=== PATIENT | male | born 2000 | race Caucasian/White ===

== ENCOUNTER 2025-04-25 12:00 | Inpatient (IN) ==
[2025-04-25] MEDS: SODIUM CHLORIDE 0.9% 1,000 ML IV STA (12:38)
[2025-04-25] MEDS: ONDANSETRON INJ 2 MG/ML 2 ML VIAL IV STA (12:39)
[2025-04-25] MEDS: ACETAMINOPHEN 1,000 MG/100 ML VIAL IV STA (12:40)
[2025-04-25 13:00] LABS: Hematocrit (blood only) 37.3 % (42.0-52.0); Hemoglobin 12.9 g/dl (14.0-18.0); Mean Corpuscular Hemoglobin 29.6 pg (25.0-34.0); Mean Corpuscular Volume 85.6 fL (80.0-100.0); Platelet Count 387 K/uL (130-400); RDW Standard Deviation 39.1 fL (36.4-46.3); Red Blood Count 4.36 M/uL (4.70-6.10); White Blood Count 21.11 K/ul (4.8-10.8)
[2025-04-25] MEDS: OPTIRAY 320 100ml IV ONE (13:03)
[2025-04-25 13:23] LABS: Alanine Aminotransferase 7.0 U/L (7-52); Albumin Globulin Ratio 1.2 (0.9-2); Albumin Level 3.8 gm/dl (3.4-5.0); Alkaline Phosphatase 89.0 U/L (34-104); Anion Gap 7.0 (3-11); Bilirubin,Total 0.5 mg/dl (0.2-1.0); Blood Urea Nitrogen 5.0 mg/dl (6-23); Calcium 8.7 mg/dl (8.6-10.3); Carbon Dioxide 28.0 mmol/L (21-32); Chloride 101.0 mmol/L (98-107); Creatinine Clr Calc Pharmacy 110.4 ml/min; Globulin 3.3 gm/dl (2.5-4.0); Glucose 95.0 mg/dl (70-99(Fasting)); Lipase 19.0 U/L (11-82); Potassium 3.7 mmol/L (3.5-5.1); Sodium 136.0 mmol/L (136-145); Total Protein 7.1 gm/dl (6.0-8.3)
--- NOTE | 2025-04-25 13:25 | CT Scan Report ---
ABDOMEN AND PELVIS CT WITH IV CONTRAST CT DOSE: 402.5 mGy.cm HISTORY: Acute generalized abdominal pain in a patient with history of ulcerative colitis abd pain, UC flare TECHNIQUE: Multiaxial CT images of the abdomen and pelvis were performed following the IV administrat ion of 90 cc of Optiray, A dose lowering technique was utilized adhering to the principles of ALARA. COMPARISON STUDY: CT 04/19/2025 FINDINGS: The lung bases are clear. The liver, spleen, gallbladder, pancreas, and adrenal glands are within normal limits. No hydronephrosis. There are a few small cysts of the kidneys again noted. Urin afrooq bladder wall thickening with partial distention. Unremarkable prostate. Aorta and IVC are within normal limits. No bowel obstruction. There is prominent circumferential wall thickening throughout the entire colon extending from the cecum through the rectum with adjacent inflammatory stranding subcentimeter eliseo lonic lymph nodes. Findings have mildly worsened from prior. Fluid-filled appendix measuring up to 8 mm, previously 6 monitors. Trace free pelvic fluid. No abscess, sinus tract or fistula. No acute frac ture. IMPRESSION: 1. Mild progression of the diffuse proctocolitis compatible with the patient's clinical history of in flammatory bowel disease/ulcerative colitis. 2. Pericolonic lymph nodes are likely reactive. 3. No bowel obstruction or pneumoperitoneum. 4. Dilated fluid-filled appendix is likely secondary to the aforementioned colitis. ACT 112: Negative or not required by law. The above report was generated using voice recognition software. It may contain grammatical, syntax o r spelling errors. Electronically signed by: Prieto Infante M.D. 04/25/2025 1:23 PM
[2025-04-25 13:31] LABS: Dohle Bodies 1+; Immature Granulocytes # (auto) 0.30 K/uL (0.01-0.20); Immature Granulocytes % (auto) 1.4 %
--- NOTE | 2025-04-25 13:34 | History & Physical Report ---
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 #ulcerative colitis, uncontrolled/exacerbation - -patient has been back on Rx for his UC for <1 week with budesonide & mesalamine per rectum -despite such his symptoms have persisted, and he has severe disease on CT scan with miller-colitis -infectious work-up -- stool Biofire, stool C diff -- all negative -GI has consulted, and they advised initiation of IV solumedrol 40mg BID -hold budesonide & mesalamine while on IV steroids -defer additional Rx to GI (prednisone taper at d/c? re-initiation of biologic agent?) -IV fluids -IV pepcid for GI prophylaxis while on high-dose steroids -IV toradol prn pain -clear liquid diet -appreciate GI consultation & recs #severe protein calorie malnutrition with weight loss - -2nd to uncontrolled ulcerative colitis -check nutritional labs in am --> Fe studies, B12, folate -consider MVI -consider protein supplement #cough - -lung exam wnl -O2 sats wnl -plan for 2-view cxr #anemia - -2nd to blood loss last 2-3 weeks from UC -check Fe studies, B12, folate in am -recheck CBC am #leukocytosis - -likely 2nd to UC flare -stool BioFire, stool C diff negative -trend CBC #DVT Proph - -defer on chemical means while having active BRBPR #abnormal appendix on CT scan - -likely due to inflammation from his UC -doubt acute appendicitis de lelia History of Present Illness Chief Complaint: frequent bloody stools Primary Care Provider: NO PCP 24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 His ulcerative colitis was diagnosed in 2023 after a 6 week hospitalization in [place]. Initially he was diagnosed with a parasitic infection, then ultimately had a colonoscopy which confirmed the presence of UC. He was on Remicade until September 2024 at which time it was discontinued. Starting about 3 weeks ago he developed mild bloody stools. These then progressed over the last 2 weeks. He is now having about 15 bloody stools each day including nocturnal symptoms. He has lost about 15 pounds of weight during this time period. He has lower abdominal pain that radiates to the low back. Denies vomiting but has had nausea. He is trying to eat/drink but "can't keep up" with the amount of stool losses. He has felt weak and dizzy/lightheaded. On 04/19 he came to the [facility] ER due to his GI symptoms. CT abd/pelvis showed severe colitis c/w his UC. GI was consulted and they advised budesonide 9mg PO daily along with mesalamine suppositories nightly with close follow-up shortly thereafter. He did indeed f/u with [facility] today who advised hospitalization since he was not responding to the above medicines. Allergies Allergy/AdvReac Type Severity Reaction Status Date / Time No Known Allergies Allergy Verified 04/25/25 09:59 Home Medications Medication Instructions Recorded Confirmed Type budesonide 3 mg 9 mg (3 x 3 mg) PO DAILY 30 days 04/19/25 04/25/25 Rx capsule,delayed,extended release #90 ea mesalamine 1,000 mg rectal 1 g WA HS 30 days #30 ea 04/19/25 04/25/25 Rx suppository Past Med/Surg History Problem List (Updated 04/25/25 @ 23:36 by Christopher Dennis MD) Anemia Cough Weight loss Severe protein-calorie malnutrition Leukocytosis (Acute) Abdominal pain (Acute) Medical History (Updated 04/25/25 @ 23:36 by Christopher Dennis MD) Ulcerative colitis with rectal bleeding Surgical History (Updated 04/25/25 @ 14:55 by Christopher Dennis MD) No pertinent past surgical history Family History (Updated 04/25/25 @ 14:56 by Christopher Dennis MD) Mother Hypothyroidism due to Kirsten's thyroiditis Family/Other Diabetes cousin - type 1 Denies family history of Inflammatory bowel disease Social History (Updated 04/25/25 @ 14:57 by Christopher Dennis MD) Smoking Status: Never smoker Hx Alcohol Use: No Hx Substance Use: No Preferred Language: Kiswahili 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 Beliefs That Will Affect Care: None marital status: Single Current Living Situation Comment: apartment current occupational status: student other: 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) Feels Safe at Home: Yes Review of Systems Review of Systems: gen - no fevers; +weight loss - 15 pounds last few weeks eyes - no ocular symptoms HENT - no recent URI or dysphagia; no ulcers CV - no chest pain pulm - no dyspnea; mild dry cough x 2-3 weeks GI - abd pain, nausea, BRBPR x 15 times/day for several weeks; no vomiting - no dysuria musculo - no joint pain skin - no rash endo - no diabetes Physical Exam Physical Exam: gen - thin, NAD, pleasant eyes - PERRL HENT - mouth without ulcers; MM slightly dry neck - no lymph nodes, no goiter heart - RRR, s1 s2, no murmur lungs - CTA b/l abd - mild tenderness lower quadrants, BS+, no HSM, ND, no peritoneal signs ext - no edema, pulses 2+ b/l feet skin - no rash psych - a/o x 3 neuro - strength 5/5 x 4 exts Results & Data Results & Data Vital Signs (Past 12 Hours) Vital Signs Temp Pulse Pulse Resp BP BP Pulse Ox 04/25/25 13:09 89 17 111/63 100 04/25/25 12:55 99 04/25/25 12:26 76 18 122/71 99 04/25/25 12:04 36.8 C 114 H 18 119/81 99 O2 Del Method 04/25/25 13:09 04/25/25 12:55 Room Air 04/25/25 12:26 Room Air 04/25/25 12:04 Room Air Laboratory Results Laboratory Results - last 24 hr 04/25/25 04/25/25 04/25/25 12:23 12:40 12:50 WBC 21.11 H RBC 4.36 L Hgb 12.9 L Hct 37.3 L MCV 85.6 MCH 29.6 MCHC 34.6 RDW Std Deviation 39.1 RDW Coeff of Chery 12.6 Plt Count 387 MPV 9.9 Immature Gran % (Auto) 1.4 Neut % (Auto) 67.0 Lymph % (Auto) 16.4 [place] % (Auto) 12.2 Eos % (Auto) 2.1 Baso % (Auto) 0.9 Neut # (Auto) 14.12 H Lymph # (Auto) 3.47 H [place] # (Auto) 2.57 H Eos # (Auto) 0.45 Baso # (Auto) 0.20 Immature Gran # (Auto) 0.30 H Absolute Nucleated RBC 0.03 Nucleated RBC % (auto) 0.1 Dohle Bodies 1+ ESR 29 H Sodium 136 Potassium 3.7 Chloride 101 Carbon Dioxide 28 Anion Gap 7 BUN 5 L Creatinine 0.82 Est Cr Clr Drug Dosing 110.4 eGFR 126.58 BUN/Creatinine Ratio 6.1 L Glucose 95 Calcium 8.7 Magnesium Pending Total Bilirubin 0.5 AST 12 L ALT 7 Alkaline Phosphatase 89 C-Reactive Protein 11.07 H Total Protein 7.1 Albumin 3.8 Globulin 3.3 Albumin/Globulin Ratio 1.2 Lipase 19 Procalcitonin 0.09 TSH Pending Urine Color Dark Yellow Urine Appearance Clear Urine pH 7.5 Ur Specific [place] 1.032 H Urine Protein 2+ H Urine Glucose (UA) Negative Urine Ketones 1+ H Urine Blood Trace H Urine Nitrite Negative Urine Bilirubin 1+ H Urine Urobilinogen Negative Ur Leukocyte Esterase 1+ H Urine WBC (Auto) >50 H Urine RBC (Auto) 11-20 H U Hyaline Cast (Auto) 0-2 U Epithel Cells (Auto) 0-2 Urine Bacteria (Auto) None Seen Urine Mucus Present A Urine Comment Stl C. cayetanensis PCR Pending Stool Rotavirus A PCR Pending Stl Adenov F 40/41 PCR Pending Stool Astrovirus (PCR) Pending Stool Campylobacter PCR Pending Stl C. diff Tox B Gene Negative Cdiff Gene Stl C. diff [id number] NEGATIVE Stool Cryptosporidium PCR Pending Stl E.coli Shiga Tox PCR Pending Stl Enterotoxigenic E PCR Pending Stool EAEC (PCR) Pending Stl E. histolytica PCR Pending Stool Giardia Lamblia PCR Pending Stool Salmonella PCR Pending Stool Sapovirus (PCR) Pending Stl P. shigelloides PCR Pending Stl Shigella/EIEC PCR Pending St Y.enterocolitica PCR Pending Stool Vibrio (PCR) Pending Stl Vibrio cholerae PCR Pending Stl Norovirus GI/GII PCR Pending Blood Type B Positive Antibody Screen NEGATIVE Diagnostic Findings Abdomen/Pelvis CT 04/25/25 12:[address] WITH IV CONTRAST CT DOSE: 402.5 mGy.cm HISTORY: Acute generalized abdominal pain in a patient with history of ulcerative colitis abd pain, UC flare TECHNIQUE: Multiaxial CT images of the abdomen and pelvis were performed following the IV administration of 90 cc of Optiray, A dose lowering technique was utilized adhering to the principles of ALARA. COMPARISON STUDY: CT 04/19/2025 FINDINGS: The lung bases are clear. The liver, spleen, gallbladder, pancreas, and adrenal glands are within normal limits. No hydronephrosis. There are a few small cysts of the kidneys again noted. Urinary bladder wall thickening with partial distention. Unremarkable prostate. Aorta and IVC are within normal limits. No bowel obstruction. There is prominent circumferential wall thickening throughout the entire colon extending from the cecum through the rectum with adjacent inflammatory stranding subcentimeter pericolonic lymph nodes. Findings have mildly worsened from prior. Fluid-filled appendix measuring up to 8 mm, previously 6 monitors. Trace free pelvic fluid. No abscess, sinus tract or fistula. No acute fracture. IMPRESSION: 1. Mild progression of the diffuse proctocolitis compatible with the patient's clinical history of inflammatory bowel disease/ulcerative colitis. 2. Pericolonic lymph nodes are likely reactive. 3. No bowel obstruction or pneumoperitoneum. 4. Dilated fluid-filled appendix is likely secondary to the aforementioned colitis. ACT 112: Negative or not required by law. The above report was generated using voice recognition software. It may contain grammatical, syntax or spelling errors. Electronically signed by: Prieto Infante M.D. 04/25/2025 1:23 PM PG Care Time/CCT Total # of Minutes Spent Total Time Spent with Patient: Total time spent is greater than 50% in coordination of care (as documented) at patient's floor/unit and/or counseling patient: Coding Level of Care Code 27205 INT INP/OBS CARE 2/55MIN Diagnoses Ulcerative colitis with rectal bleeding K51.911 Ulcerative colitis location: unspecified ulcerative colitis location Severe protein-calorie malnutrition E43 Weight loss R63.4 Cough R05.9 Anemia D64.9 (1) Ulcerative colitis with rectal bleeding Ulcerative colitis location: unspecified ulcerative colitis location Qualified Code(s): K51.911 - Ulcerative colitis, unspecified with rectal bleeding
--- NOTE | 2025-04-25 13:47 | Emergency Department Note ---
Impression & Plan Ulcerative colitis with rectal bleeding, Abdominal pain, Leukocytosis ED Provider Note CHIEF COMPLAINT: Abdominal pain, ulcerative colitis, bloody stools HISTORY OF PRESENTING ILLNESS: Patient is a 24-year-old male who presents to the emergency department today for complaints of abdominal pain, ulcerative colitis, bloody stools. He was seen here about a week ago and put on budesonide and mesalamine suppositories. Over the course of the past week his symptoms have significantly gotten worse. He did follow-up with GI today and was referred to the emergency department for likely admission. Patient has been unable to eat or drink for the past several days and has been having bloody stools up to 15 times a day. He was diagnosed in 2023 with ulcerative colitis but this has been his worst flare as of yet. He denies any current nausea or vomiting. His pain is an 8/10 and is a sharp discomfort. He denies any lightheadedness, dizziness, syncope. Patient denies chest pain, sob, breathing difficulties, headache, fevers/chills, blood in stool or urine, any recent illness, or any recent travel. REVIEW OF SYSTEMS: See HPI for pertinent positives and pertinent negatives. ALLERGIES: See below MEDICATIONS: See below PAST MEDICAL HISTORY: See below PHYSICAL EXAM: VITALS: Vitals are noted on the nurse's note and reviewed by myself. GENERAL: Non toxic, in no acute distress, non-diaphoretic. SKIN: Capillary refill <2 sec. EYES: PERRLA. EOMI. Conjunctivae without injection, sclerae without icterus. NOSE: Patent without discharge. MOUTH: Mucous membranes moist. Uvula midline. Airway patent. NECK: Supple without nuchal rigidity. HEART: Regular rate and rhythm without murmurs gallops or rubs. LUNGS: Clear to auscultation bilaterally without wheezes, rales or rhonchi. No retractions or accessory muscle use. ABDOMEN: Positive bowel sounds x 4. Normal tympanic percussion. Soft, tender to palpation in all 4 quadrants. No masses or hepatosplenomegaly. Tay sign negative. No CVA tenderness. No guarding, rigidity, or rebound tenderness. No focal RLQ or LLQ tenderness. MUSCULOSKELETAL: No gross musculoskeletal defects. NEURO: Patient was alert and oriented. No focal neurological deficits. DIFFERENTIAL DIAGNOSIS: Differential diagnosis includes appendicitis, diverticulitis, constipation, gastroenteritis, bowel obstruction, cholecystitis, appendicitis, inflammatory bowel disease, renal colic, PUD, biliary pathology, pancreatitis, mesenteric ischemia, aortic pathology, infection, genitourinary, UTI, perforated viscus, among others. ED COURSE AND MEDICAL DECISION MAKING: HISTORY FROM INDEPENDENT HISTORIAN: History was provided by the patient. MONITOR: Continuous desk monitor: Order was placed for continuous desk monitor. Patient was placed on the desk monitor and continuous pulse ox. Patient was noted to be in normal sinus rhythm at an initial rate of 80 bpm per my interpretation. INTERPRETATION OF LABS: I interpreted the labs with full lab results as below in the lab section of this note. Laboratory results pertinent to the emergent complaint are discussed in the MDM section below. The patient was advised to follow up with their PCP and/or specialist(s) for further outpatient monitoring and management of any abnormal results. INTERPRETATION OF IMAGING: Imaging studies were interpreted by myself and read by radiology as per the imaging section of this note. The patient was advised to follow up with their PCP and/or specialist(s) for further outpatient management of any non-emergent abnormal findings. CHRONIC MEDICAL/SOCIAL CONDITIONS AFFECTING CARE: No social concerns were identified as barriers to patients care. ESCALATION OF CARE CONSIDERED: I considered admission on this patient due to the severity of the ulcerative colitis flare. CONSULTATIONS: I did speak with Dr. Charles with GI who will come and see the patient to develop a treatment plan. I also consulted with Dr. Dennis the hospitalist for admission to the hospital. The patient was accepted. SUMMARY: I examined the patient for complaints of abdominal pain, ulcerative colitis flare, bloody stools. A physical exam and history were performed. Nursing notes, EMR, and medication list were personally reviewed. CBC showed an elevated white blood cell count at 21.11. Mild anemia with a hemoglobin of 12.9. No thrombocytopenia. ESR was 29 CMP showed no emergent findings. CRP was 11.07. Lipase was 19. Procalcitonin was 0.09. CT of the abdomen and pelvis did show a mild progression of the diffuse proctocolitis, pericolonic lymph nodes are reactive, and dilated fluid-filled appendix which is likely secondary to colitis. The patient was given 1 L of normal saline Zofran 4 mg, Tylenol 1 g with improvement in nausea and pain. I did speak with Dr. Charles from GI who will plan to see the patient. I also spoke with Dr. Hung for admission. The patient was accepted. Patient's urinalysis, C. difficile, stool panel was pending upon admission. Hospitalist was made aware. DIAGNOSIS: Ulcerative colitis flare TREATMENT PLAN/DISCHARGE INSTRUCTIONS: Admit to hospitalist services The chart was completed utilizing [employer] Speech voice recognition software.Grammatical errors, random word insertions, pronoun errors, and incomplete sentences are an occasional consequence of this system due to software limitations, ambient noise, and hardware issues.Any formal questions or concerns about the content, text, or information contained within the body of this dictation should be directly addressed to the physician for clarification. Past Med/Surg History Problem List (Updated 04/25/25 @ 13:47 by ALEX Antunez) Leukocytosis (Acute) Abdominal pain (Acute) Ulcerative colitis with rectal bleeding (Acute) Social History Smoking Status: Never smoker Preferred Language: Frisian Feels Safe at Home: Yes Allergies Allergies Allergy/AdvReac Type Severity Reaction Status Date / Time No Known Allergies Allergy Verified 04/25/25 09:59 Home Meds Previous Rx's Medication Instructions Recorded budesonide 3 mg 9 mg (3 x 3 mg) PO DAILY 30 days 04/19/25 capsule,delayed,extended release #90 ea mesalamine 1,000 mg rectal 1 g RI HS 30 days #30 ea 04/19/25 suppository Results & Data (ED) Vital Signs Vital Signs - 24 hr 04/25/25 12:04 04/25/25 12:26 04/25/25 12:55 Temperature 36.8 C Temperature Source Temporal Artery Scan Pulse Rate 114 H Pulse Rate [Right Finger] 76 Pulse Rhythm [Right Finger] Pulse Strength [Right Finger] Normal Respiratory Rate 18 18 Respiratory Effort / Characteristics Non-Labored Spontaneous Non-Labored Respiratory Depth Normal Normal Respiratory Pattern Regular Blood Pressure 119/81 Blood Pressure [Left Arm] 122/71 Blood Pressure Mean 93 Blood Pressure Mean [Left Arm] 88 Blood Pressure Position Sitting Pulse Oximetry 99 99 99 Oxygen Delivery Method Room Air Room Air Room Air Sepsis Recent Fever Within 48 Hours No Sepsis New/Unexplained Change in Mental Status No Sepsis Action Taken by Nursing No Action Required 04/25/25 13:09 04/25/25 14:12 Temperature 36.8 C Temperature Source Oral Pulse Rate 89 Pulse Rate [Right Finger] 80 Pulse Rhythm [Right Finger] Regular Pulse Strength [Right Finger] Normal Respiratory Rate 17 18 Respiratory Effort / Characteristics Non-Labored Spontaneous Respiratory Depth Normal Respiratory Pattern Regular Blood Pressure 111/63 Blood Pressure [Left Arm] 126/72 Blood Pressure Mean 71 Blood Pressure Mean [Left Arm] 90 Blood Pressure Position Pulse Oximetry 100 99 Oxygen Delivery Method Room Air Sepsis Recent Fever Within 48 Hours Sepsis New/Unexplained Change in Mental Status Sepsis Action Taken by Nursing Laboratory Data 04/25/25 12:04/25/25 12:23 Lab Results 04/25/25 04/25/25 04/25/25 Range/Units 12:23 12:40 12:50 WBC 21.11 H (4.8-10.8) K/ul RBC 4.36 L (4.70-6.10) M/uL Hgb 12.9 L (14.0-18.0) g/dl Hct 37.3 L (42.0-52.0) % MCV 85.6 (80.0-100.0) fL MCH 29.6 (25.0-34.0) pg MCHC 34.6 (32.0-36.0) g/dL RDW Std Deviation 39.1 (36.4-46.3) fL RDW Coeff of Chery 12.6 (11.5-14.5) % Plt Count 387 (130-400) K/uL MPV 9.9 (9.4-12.4) fL Immature Gran % (Auto) 1.4 % Neut % (Auto) 67.0 % Lymph % (Auto) 16.4 % [place] % (Auto) 12.2 % Eos % (Auto) 2.1 % Baso % (Auto) 0.9 % Neut # (Auto) 14.12 H (1.40-6.50) K/uL Lymph # (Auto) 3.47 H (1.20-3.40) K/uL [place] # (Auto) 2.57 H (0.11-0.59) K/uL Eos # (Auto) 0.45 (0.00-0.50) K/uL Baso # (Auto) 0.20 (0.00-0.20) K/uL Immature Gran # (Auto) 0.30 H (0.01-0.20) K/uL Absolute Nucleated RBC 0.03 (0.00-0.12) K/uL Nucleated RBC % (auto) 0.1 % Dohle Bodies 1+ ESR 29 H (0-15) mm/hr Sodium 136 (136-145) mmol/L Potassium 3.7 (3.5-5.1) mmol/L Chloride 101 (98-107) mmol/L Carbon Dioxide 28 (21-32) mmol/L Anion Gap 7 (3-11) BUN 5 L (6-23) mg/dl Creatinine 0.82 (0.6-1.4) mg/dl Est Cr Clr Drug Dosing 110.4 ml/min eGFR 126.58 BUN/Creatinine Ratio 6.1 L (10-20) Glucose 95 (70-99(Fasting)) mg/dl Calcium 8.7 (8.6-10.3) mg/dl Total Bilirubin 0.5 (0.2-1.0) mg/dl AST 12 L (13-39) U/L ALT 7 (7-52) U/L Alkaline Phosphatase 89 (34-104) U/L C-Reactive Protein 11.07 H (0-0.5) mg/dl Total Protein 7.1 (6.0-8.3) gm/dl Albumin 3.8 (3.4-5.0) gm/dl Globulin 3.3 (2.5-4.0) gm/dl Albumin/Globulin Ratio 1.2 (0.9-2) Lipase 19 (11-82) U/L Procalcitonin 0.09 (0-0.5) ng/ml Urine Color Dark Yellow Urine Appearance Clear (Clear) Urine pH 7.5 (4.5-7.5) Ur Specific [place] 1.032 H (1.000-1.030) Urine Protein 2+ H (Negative) Urine Glucose (UA) Negative (Negative) Urine Ketones 1+ H (Negative) Urine Blood Trace H (Negative) Urine Nitrite Negative (Negative) Urine Bilirubin 1+ H (Negative) Urine Urobilinogen Negative (Negative) Ur Leukocyte Esterase 1+ H (Negative) Urine WBC (Auto) >50 H (0-5) /hpf Urine RBC (Auto) 11-20 H (0-2) /hpf U Hyaline Cast (Auto) 0-2 (0-2) /lpf U Epithel Cells (Auto) 0-2 (0-2) /hpf Urine Bacteria (Auto) None Seen (None Seen) Urine Mucus Present A (None Prsent) Urine Comment Blood Type B Positive Antibody Screen NEGATIVE Administered Medications Potassium Chloride/Sodium Chloride (Normal Saline W/20 Meq Kcl) 20 meq in 1,000 mls @ 100 mls/hr IV .Q10H DELFINO Stop: 04/28/25 13:59 Last Admin: 04/25/25 14:19 Dose: 100 mls/hr Documented By: GRACIELA Discontinued Medications Sodium Chloride (Nss) 1,000 mls @ 999 mls/hr IV .Q1H1M STA Stop: 04/25/25 13:31 Last Infusion: 04/25/25 13:50 Dose: Infused Documented By: Admin: 04/25/25 12:38 Dose: 999 mls/hr Documented By: GRACIELA Acetaminophen (Ofirmev) 1,000 mg in 100 mls @ 400 mls/hr IV NOW STA Stop: 04/25/25 12:45 Last Infusion: 04/25/25 13:50 Dose: Infused Documented By: Admin: 04/25/25 12:40 Dose: 400 mls/hr Documented By: GRACIELA Ioversol (Optiray 320 100ml) 90 ml IV ONCE ONE Stop: 04/25/25 13:02 Last Admin: 04/25/25 13:03 Dose: 90 ml Documented By: CHUCKIE Methylprednisolone (Methylprednisolone 125 Mg/2 Ml Vial) 40 mg IV BID STA Stop: 04/25/25 13:56 Last Admin: 04/25/25 14:10 Dose: Not Given Documented By: GRACIELA Methylprednisolone (Methylprednisolone 125 Mg/2 Ml Vial) 40 mg IV NOW STA Stop: 04/25/25 14:00 Last Admin: 04/25/25 14:10 Dose: 40 mg Documented By: GRACIELA Ondansetron HCl (Ondansetron Inj 2 Mg/Ml 2 Ml Vial) 4 mg IV NOW STA Stop: 04/25/25 12:32 Last Admin: 04/25/25 12:39 Dose: 4 mg Documented By: GRACIELA Imaging Data Radiologist's Impression: Abdomen/Pelvis CT 04/25/25 12:[address] WITH IV CONTRAST CT DOSE: 402.5 mGy.cm HISTORY: Acute generalized abdominal pain in a patient with history of ulcerative colitis abd pain, UC flare TECHNIQUE: Multiaxial CT images of the abdomen and pelvis were performed following the IV administration of 90 cc of Optiray, A dose lowering technique was utilized adhering to the principles of ALARA. COMPARISON STUDY: CT 04/19/2025 FINDINGS: The lung bases are clear. The liver, spleen, gallbladder, pancreas, and adrenal glands are within normal limits. No hydronephrosis. There are a few small cysts of the kidneys again noted. Urinary bladder wall thickening with partial distention. Unremarkable prostate. Aorta and IVC are within normal limits. No bowel obstruction. There is prominent circumferential wall thickening throughout the entire colon extending from the cecum through the rectum with adjacent inflammatory stranding subcentimeter pericolonic lymph nodes. Findings have mildly worsened from prior. Fluid-filled appendix measuring up to 8 mm, previously 6 monitors. Trace free pelvic fluid. No abscess, sinus tract or fistula. No acute fracture. IMPRESSION: 1. Mild progression of the diffuse proctocolitis compatible with the patient's clinical history of inflammatory bowel disease/ulcerative colitis. 2. Pericolonic lymph nodes are likely reactive. 3. No bowel obstruction or pneumoperitoneum. 4. Dilated fluid-filled appendix is likely secondary to the aforementioned colitis. ACT 112: Negative or not required by law. The above report was generated using voice recognition software. It may contain grammatical, syntax or spelling errors. Electronically signed by: Prieto Infante M.D. 04/25/2025 1:23 PM Discharge Plan Visit Data Chief Complaint: GI Assessment Stated Complaint: ULCERATIVE COLITIS, BLOOD IN STOOL, ABD PAIN ED Provider: Aiden De Santiago ED Midlevel Provider: Quita Rodríguez Discharge Problem: Ulcerative colitis with rectal bleeding, Abdominal pain, Leukocytosis Patient Disposition: Admitted As Inpatient Condition: Good Prescriptions Prescriptions: No Action mesalamine 1,000 mg suppository 1 g RI HS 30 Days Qty: 30 0RF budesonide 3 mg capsule,delayed,extend.release 9 mg PO DAILY 30 Days Qty: 90 0RF Referrals Referrals: PCP,NO [Physician] - Discharge Problem: Ulcerative colitis with rectal bleeding Qualifiers: Ulcerative colitis location: unspecified ulcerative colitis location Qualified Code(s): K51.911 - Ulcerative colitis, unspecified with rectal bleeding Abdominal pain Qualifiers: Abdominal location: generalized Qualified Code(s): R10.84 - Generalized abdominal pain Leukocytosis Qualifiers: Leukocytosis type: unspecified Qualified Code(s): D72.829 - Elevated white blood cell count, unspecified
--- NOTE | 2025-04-25 13:57 | Gastrointestinal Consultation ---
Date of Consultation April 25, 2025 Assessment & Plan (1) Ulcerative colitis with rectal bleeding: -Obtain stool PCR & C diff again, though this was negative 6 days ago -IV Solumedrol 40 mg BID added -Continue to monitor CBC, CMP -Will need ongoing outpatient care to establish long-term therapy History of Present Illness Reason for Consultation: Patient is a 24 yo male who presented to the ED after seeing Gurjit Sullivan PA-C in outpatient clinic. He was diagnosed with Ulcerative Colitis in October 2023. He was on Prednisone and Budesonide at various points without improvement of his symptoms. He then was put on Remicade previously in [place] which was very beneficial for his symptoms. He notes that unfortunately due to insurance issues, he has not been on Remicade since September 2024. He saw a market research coordinator in February 2025 and was scheduled for a colonoscopy in June 2025. He is having 12 episodes of diarrhea daily with blood. He notes constant abdominal pain. He has had 15 lb weight loss in 2 weeks. He went to the ER on 04/19/[address] scan revealed left sided inflammatory disease consistent with left sided colitis. Stool PCR and C.diff were negative. He was started on Budesonide 9mg/day and Mesalamine 1G suppositories. CBC revealed leukocytosis of 13k/ul. No anemia. CMP unremarkable. Lipase normal. CRP 2.5. ESR normal. CT abd/pelvis 04/19/25 - IMPRESSION: Mild to moderate colitis from the left colon to the rectum, consistent with the given history of ulcerative colitis. No evidence of perforation, abscess, or bowel obstruction seen. CBC 04/19/25 WBC - 13k/ul Hgb - 15.2g/dl Hct - 44.5% Plt 285k/ul. CRP 2.52 He presented to [facility] [place] [facility] outpatient clinic for the first time today. Due to the significance of his symptoms and failure to respond to Budesonide as an outpatient, he was referred to the ED. Here he has pending repeat stool studies. H/H 12.9/37.3. WBC 21,110. ESR pending. CRP 11,070. CT abdomen/pelvis today: IMPRESSION: 1. Mild progression of the diffuse proctocolitis compatible with the patient's clinical history of inflammatory bowel disease/ulcerative colitis. 2. Pericolonic lymph nodes are likely reactive. 3. No bowel obstruction or pneumoperitoneum. 4. Dilated fluid-filled appendix is likely secondary to the aforementioned colitis. Allergies Allergy/AdvReac Type Severity Reaction Status Date / Time No Known Allergies Allergy Verified 04/25/25 09:59 Home Medications Medication Instructions Recorded Confirmed Type budesonide 3 mg 9 mg (3 x 3 mg) PO DAILY 30 days 04/19/25 04/25/25 Rx capsule,delayed,extended release #90 ea mesalamine 1,000 mg rectal 1 g MA HS 30 days #30 ea 04/19/25 04/25/25 Rx suppository Patient History Social History Smoking Status: Never smoker Preferred Language: Maldivian Feels Safe at Home: Yes Review of Systems Constitutional: + weight loss Respiratory: no cough and no dyspnea Cardiovascular: no chest pain Gastrointestinal: + abdominal pain, + diarrhea/loose stool s and + blood in stools Psychiatric: no problem reported Physical Exam Constitutional: well developed Respiratory: normal respiratory effort Cardiovascular: Rate/Rhythm: regular rate Gastrointestinal (Abdomen): Inspection/Auscultation: abdomen normal to inspection and normal bowel sounds Percussion/Palpation: + abdomen tender and abdomen soft Psychiatric: Orientation: alert and oriented x 3 Results & Data Vital Signs (Past 12 Hours) Vital Signs Temp Pulse Pulse Resp BP BP Pulse Ox 04/25/25 13:09 89 17 111/63 100 04/25/25 12:55 99 04/25/25 12:26 76 18 122/71 99 04/25/25 12:04 36.8 C 114 H 18 119/81 99 O2 Del Method 04/25/25 13:09 04/25/25 12:55 Room Air 04/25/25 12:26 Room Air 04/25/25 12:04 Room Air PG Care Time/CCT Total # of Minutes Spent Total Time Spent with Patient: Total time spent is greater than 50% in coordination of care (as documented) at patient's floor/unit and/or counseling patient: Coding Level of Care Code 32656 OFFICE CONSULT LVL M Diagnoses Ulcerative colitis with rectal bleeding K51.911 Ulcerative colitis location: unspecified ulcerative colitis location (1) Ulcerative colitis with rectal bleeding Ulcerative colitis location: unspecified ulcerative colitis location Qualified Code(s): K51.911 - Ulcerative colitis, unspecified with rectal bleeding
[2025-04-25 13:59] LABS: Appearance Urine Clear (Clear); Bacteria Urine Automated None Seen (None Seen); Cast Urine Automated 0-2 /lpf (0-2); Epithelial Cell Urine Auto 0-2 /hpf (0-2); Glucose Urine UA Negative (Negative); WBC Urine Automated >50 /hpf (0-5)
[2025-04-25] MEDS: NSS + 20MEQ KCL 20 MEQ/1,000 ML BAG IV SCH (14:19)
[2025-04-25 14:29] LABS: Cdiff Toxin B Gene (2yr or >) Negative Cdiff Gene (Neg)
[2025-04-25 15:01] LABS: Adenovirus F 40/41 PCR Not Detected (NotDetected); Campylobacter PCR Not Detected (NotDetected); Enteroaggregative E.coli(EAEC) Not Detected (NotDetected); Shiga-like Toxin E.coli (STEC) Not Detected (NotDetected); Vibrio species PCR Not Detected (NotDetected)
[2025-04-25 15:09] LABS: Magnesium 1.7 mg/dl (1.7-2.4)
[2025-04-25 15:19] LABS: Thyroid Stimulating Hormone 3.493 uIu/ml (0.300-4.500)
--- NOTE | 2025-04-25 15:35 | XRay Report ---
XR chest 2V PA/lateral CLINICAL HISTORY: cough x 2 weeks COMPARISON STUDY: 04/19/2025 FINDINGS: Heart size and pulmonary vasculature are normal. No consolidation or pleural effusion. No p neumothorax. IMPRESSION: No pneumonia seen. ACT 112: Negative or not required by law. Electronically signed by: Kendrick Jj M.D. 04/25/2025 3:34 PM
[2025-04-25] MEDS ORDERED: Nursing to Pharmacy Communication SCH (16:30)
[2025-04-25] MEDS: ACETAMINOPHEN 325 MG TAB PO PRN (16:47)
[2025-04-25] MEDS: FAMOTIDINE 20MG IV PUSH 20 MG/5 ML SYR IV SCH (16:56)
[2025-04-25] MEDS: KETOROLAC 30 MG/ML VIAL IV PRN (17:30)
[2025-04-26 06:56] LABS: Hematocrit (blood only) 33.2 % (42.0-52.0); Hemoglobin 11.3 g/dl (14.0-18.0); Mean Corpuscular Hemoglobin 29.7 pg (25.0-34.0); Mean Corpuscular Volume 87.1 fL (80.0-100.0); Platelet Count 343 K/uL (130-400); RDW Standard Deviation 40.2 fL (36.4-46.3); Red Blood Count 3.81 M/uL (4.70-6.10); White Blood Count 21.64 K/ul (4.8-10.8)
[2025-04-26 07:17] LABS: Anion Gap 5 (3-11); Blood Urea Nitrogen 7 mg/dl (6-23); Calcium 8.4 mg/dl (8.6-10.3); Carbon Dioxide 26 mmol/L (21-32); Chloride 108 mmol/L (98-107); Creatinine Clr Calc Pharmacy 158.8 ml/min; Glucose 128 mg/dl (70-99(Fasting)); Potassium 4.4 mmol/L (3.5-5.1); Sodium 139 mmol/L (136-145)
[2025-04-26 07:24] LABS: Iron < 10 mcg/dl (35-175); Total Iron Binding Cap Calc 253 mcg/dl (250-450); Transferrin 181 mg/dl (200-360)
[2025-04-26 07:37] LABS: Ferritin 63.8 ng/ml (8-388)
[2025-04-26 08:55] LABS: Folate (Folic Acid),Ser orPlas 12.65 ng/ml (>5.38)
[2025-04-26 08:56] LABS: Vitamin B12 1206.0 pg/ml (180-914)
--- NOTE | 2025-04-26 12:01 | Gastroenterology Progress Note ---
Date of Service April 26, 2025 Assessment & Plan (1) Ulcerative colitis with rectal bleeding: Plan: -Continue IV Solumedrol 40 mg BID -Continue to monitor H/H, BUN/Cr, and electrolytes -Patient will need assistance with his insurance situation from case management; He is going to require advanced biologic therapies in the outpatient setting as well as ongoing GI testing. -Tolerating a clear liquid diet at present; when able can slowly advance to a low residue diet. Admission and Anticipated Discharge Date Admission Date: April 25, 2025 Supervising Physician Co-Signing Physician Notes I saw and examined this patient with our nurse practitioner and agree with her assessment and plan. Clinically improving on IV steroids. Less frequent bowel movements less abdominal pain and less bleeding. Can advance to low residue diet. Continue IV steroids. Avoid narcotics and antimotility agents. Subjective Patient is a 24 yo male with Ulcerative Colitis. He has had 2 doses of IV Solumedrol and has begun to notice improvement in his symptoms. He notes reduction in bowel frequency as well as lower volume stools. He did not have bleeding in his stool this morning. H/H 11.3/33.2. BUN 7/Cr 0.57. He notes IV hydration has helped his symptoms as well. Stool PCR negative. C diff negative. Review of Systems Gastrointestinal: + abdominal pain and + diarrhea/loose st ools (improving) Physical Exam Constitutional: well developed Respiratory: normal respiratory effort Cardiovascular: Rate/Rhythm: regular rate Gastrointestinal (Abdomen): Inspection/Auscultation: abdomen normal to inspection Psychiatric: Orientation: alert and oriented x 3 Results & Data Results & Data Vital Signs (Past 12 Hours) Vital Signs Temp Pulse Resp BP Pulse Ox O2 Del Method 04/26/25 07:56 36.6 C 92 H 16 97/58 L 99 Room Air Laboratory Results Laboratory Results - last 48 hr 04/25/25 04/25/25 04/25/25 12:23 12:40 12:50 WBC 21.11 H RBC 4.36 L Hgb 12.9 L Hct 37.3 L MCV 85.6 MCH 29.6 MCHC 34.6 RDW Std Deviation 39.1 RDW Coeff of Chery 12.6 Plt Count 387 MPV 9.9 Immature Gran % (Auto) 1.4 Neut % (Auto) 67.0 Lymph % (Auto) 16.4 [place] % (Auto) 12.2 Eos % (Auto) 2.1 Baso % (Auto) 0.9 Neut # (Auto) 14.12 H Lymph # (Auto) 3.47 H [place] # (Auto) 2.57 H Eos # (Auto) 0.45 Baso # (Auto) 0.20 Immature Gran # (Auto) 0.30 H Absolute Nucleated RBC 0.03 Nucleated RBC % (auto) 0.1 Dohle Bodies 1+ ESR 29 H Sodium 136 Potassium 3.7 Chloride 101 Carbon Dioxide 28 Anion Gap 7 BUN 5 L Creatinine 0.82 Est Cr Clr Drug Dosing 110.4 eGFR 126.58 BUN/Creatinine Ratio 6.1 L Glucose 95 Calcium 8.7 Magnesium 1.7 Iron TIBC Transferrin Transferrin % Sat Ferritin Total Bilirubin 0.5 AST 12 L ALT 7 Alkaline Phosphatase 89 C-Reactive Protein 11.07 H Total Protein 7.1 Albumin 3.8 Globulin 3.3 Albumin/Globulin Ratio 1.2 Lipase 19 Vitamin B12 Folate Procalcitonin 0.09 TSH 3.493 Urine Color Dark Yellow Urine Appearance Clear Urine pH 7.5 Ur Specific Brooks 1.032 H Urine Protein 2+ H Urine Glucose (UA) Negative Urine Ketones 1+ H Urine Blood Trace H Urine Nitrite Negative Urine Bilirubin 1+ H Urine Urobilinogen Negative Ur Leukocyte Esterase 1+ H Urine WBC (Auto) >50 H Urine RBC (Auto) 11-20 H U Hyaline Cast (Auto) 0-2 U Epithel Cells (Auto) 0-2 Urine Bacteria (Auto) None Seen Urine Mucus Present A Urine Comment Stl C. cayetanensis PCR Not Detected Stool Rotavirus A PCR Not Detected Stl Adenov F 40/41 PCR Not Detected Stool Astrovirus (PCR) Not Detected Stool Campylobacter PCR Not Detected Stl C. diff Tox B Gene Negative Cdiff Gene Stl C. diff [id number]-[id number] NEGATIVE Stool Cryptosporidium PCR Not Detected Stl E.coli Shiga Tox PCR Not Detected Stl Enterotoxigenic E PCR Not Detected Stool EPEC (PCR) Not Detected Stool EAEC (PCR) Not Detected Stl E. histolytica PCR Not Detected Stool Giardia Lamblia PCR Not Detected Stool Salmonella PCR Not Detected Stool Sapovirus (PCR) Not Detected Stl P. shigelloides PCR Not Detected Stl Shigella/EIEC PCR Not Detected St Y.enterocolitica PCR Not Detected Stool Vibrio (PCR) Not Detected Stl Vibrio cholerae PCR Not Detected Stl Norovirus GI/GII PCR Not Detected Blood Type B Positive Antibody Screen NEGATIVE 04/26/25 06:32 WBC 21.64 H RBC 3.81 L Hgb 11.3 L Hct 33.2 L MCV 87.1 MCH 29.7 MCHC 34.0 RDW Std Deviation 40.2 RDW Coeff of Chery 12.7 Plt Count 343 MPV 9.8 Immature Gran % (Auto) Neut % (Auto) Lymph % (Auto) [place] % (Auto) Eos % (Auto) Baso % (Auto) Neut # (Auto) Lymph # (Auto) [place] # (Auto) Eos # (Auto) Baso # (Auto) Immature Gran # (Auto) Absolute Nucleated RBC Nucleated RBC % (auto) Dohle Bodies ESR Sodium 139 Potassium 4.4 Chloride 108 H Carbon Dioxide 26 Anion Gap 5 BUN 7 Creatinine 0.57 L Est Cr Clr Drug Dosing 158.8 eGFR 141.28 BUN/Creatinine Ratio 12.3 Glucose 128 H Calcium 8.4 L Magnesium Iron < 10 L TIBC 253 Transferrin 181 L Transferrin % Sat TNP Ferritin 63.8 Total Bilirubin AST ALT Alkaline Phosphatase C-Reactive Protein Total Protein Albumin Globulin Albumin/Globulin Ratio Lipase Vitamin B12 1206 H Folate 12.65 Procalcitonin TSH Urine Color Urine Appearance Urine pH Ur Specific Brooks Urine Protein Urine Glucose (UA) Urine Ketones Urine Blood Urine Nitrite Urine Bilirubin Urine Urobilinogen Ur Leukocyte Esterase Urine WBC (Auto) Urine RBC (Auto) U Hyaline Cast (Auto) U Epithel Cells (Auto) Urine Bacteria (Auto) Urine Mucus Urine Comment Stl C. cayetanensis PCR Stool Rotavirus A PCR Stl Adenov F 40/ PCR Stool Astrovirus (PCR) Stool Campylobacter PCR Stl C. diff Tox B Gene Stl C. diff [id number] Stool Cryptosporidium PCR Stl E.coli Shiga Tox PCR Stl Enterotoxigenic E PCR Stool EPEC (PCR) Stool EAEC (PCR) Stl E. histolytica PCR Stool Giardia Lamblia PCR Stool Salmonella PCR Stool Sapovirus (PCR) Stl P. shigelloides PCR Stl Shigella/EIEC PCR St Y.enterocolitica PCR Stool Vibrio (PCR) Stl Vibrio cholerae PCR Stl Norovirus GI/GII PCR Blood Type Antibody Screen PG Care Time/CCT Total # of Minutes Spent Total Time Spent with Patient: Total time spent is greater than 50% in coordination of care (as documented) at patient's floor/unit and/or counseling patient: Coding Level of Care Code 27312 SUB INP/OBS CARE 50MIN Diagnoses Ulcerative colitis with rectal bleeding K51.911 Ulcerative colitis location: unspecified ulcerative colitis location (1) Ulcerative colitis with rectal bleeding Ulcerative colitis location: unspecified ulcerative colitis location Qualified Code(s): K51.911 - Ulcerative colitis, unspecified with rectal bleeding
--- NOTE | 2025-04-26 12:12 | Hospitalist Progress Note ---
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 #ulcerative colitis, uncontrolled/exacerbation - -modestly improved today -severe disease on CT scan with miller-colitis -infectious work-up -- stool Biofire, stool C diff -- all negative -GI consult appreciated -advised solumedrol 40mg IV BID -hold budesonide & mesalamine while on IV steroids -defer additional Rx to GI (prednisone taper at d/c? re-initiation of biologic agent?) -cont IV fluids - can lower fluid rate -IV pepcid for GI prophylaxis while on high-dose steroids -IV toradol prn pain -clear liquid diet; advance per GI #severe protein calorie malnutrition with weight loss - -2nd to uncontrolled ulcerative colitis -Fe studies suggest Fe def; he reports having had IV Fe in the past -B12, folate wnl -add MVI -consider protein supplement -check 25-OH vit D in am #cough - -lung exam wnl -O2 sats wnl -2-view cxr wnl -likely upper respiratory in etiology #anemia - -2nd to blood loss last 2-3 weeks from UC -consider IV iron before discharge #leukocytosis - -likely 2nd to UC flare and steroids -stool BioFire, stool C diff negative -trend CBC #DVT Proph - -defer on chemical means while having active BRBPR #abnormal appendix on CT scan - -likely due to inflammation from his UC -doubt acute appendicitis de lelia -can follow Admission and Anticipated Discharge Date Admission Date: April 25, 2025 Subjective feels a little better today still with bloody stools, but not as frequent still with lower abdominal discomfort, but not as severe tolerating clears no vomiting Review of Systems Review of Systems: gen - c/o fatigue, mild weakness cv - no chest symptoms pulm - no dyspnea Physical Exam Physical Exam: gen - thin, NAD, pleasant HENT - MMM heart - RRR, s1 s2, no murmur lungs - CTA b/l abd - minimal tenderness lower quadrants, BS+, no HSM, ND, no peritoneal signs ext - no edema, pulses 2+ b/l feet psych - a/o x 3 skin - mild pallor Results & Data Results & Data Vital Signs (Past 12 Hours) Vital Signs Temp Pulse Resp BP Pulse Ox O2 Del Method 04/26/25 07:56 36.6 C 92 H 16 97/58 L 99 Room Air Laboratory Results Laboratory Results - last 24 hr 04/26/25 06:32 WBC 21.64 H RBC 3.81 L Hgb 11.3 L Hct 33.2 L MCV 87.1 MCH 29.7 MCHC 34.0 RDW Std Deviation 40.2 RDW Coeff of Chery 12.7 Plt Count 343 MPV 9.8 Sodium 139 Potassium 4.4 Chloride 108 H Carbon Dioxide 26 Anion Gap 5 BUN 7 Creatinine 0.57 L Est Cr Clr Drug Dosing 158.8 eGFR 141.28 BUN/Creatinine Ratio 12.3 Glucose 128 H Calcium 8.4 L Iron < 10 L TIBC 253 Transferrin 181 L Transferrin % Sat TNP Ferritin 63.8 Vitamin B12 1206 H Folate 12.65 PG Care Time/CCT Total # of Minutes Spent Total Time Spent with Patient: Total time spent is greater than 50% in coordination of care (as documented) at patient's floor/unit and/or counseling patient: Coding Level of Care Code 99803 SUB INP/OBS CARE 2/35MIN Diagnoses Ulcerative colitis with rectal bleeding K51.911 Ulcerative colitis location: unspecified ulcerative colitis location Severe protein-calorie malnutrition E43 Weight loss R63.4 Cough R05.9 Anemia D64.9 Iron deficiency E61.1 (1) Ulcerative colitis with rectal bleeding Ulcerative colitis location: unspecified ulcerative colitis location Qualified Code(s): K51.911 - Ulcerative colitis, unspecified with rectal bleeding
[2025-04-26] MEDS: SODIUM CHLORIDE 0.9% 1,000 ML IV SCH (14:27)
[2025-04-27 07:07] LABS: Hematocrit (blood only) 33.0 % (42.0-52.0); Hemoglobin 11.6 g/dl (14.0-18.0); Mean Corpuscular Hemoglobin 30.4 pg (25.0-34.0); Mean Corpuscular Volume 86.6 fL (80.0-100.0); Platelet Count 398 K/uL (130-400); RDW Standard Deviation 40.1 fL (36.4-46.3); Red Blood Count 3.81 M/uL (4.70-6.10); White Blood Count 19.27 K/ul (4.8-10.8)
[2025-04-27 07:25] LABS: Anion Gap 4.0 (3-11); Blood Urea Nitrogen 9.0 mg/dl (6-23); Calcium 8.3 mg/dl (8.6-10.3); Carbon Dioxide 29.0 mmol/L (21-32); Chloride 106.0 mmol/L (98-107); Creatinine Clr Calc Pharmacy 143.7 ml/min; Glucose 129.0 mg/dl (70-99(Fasting)); Potassium 4.2 mmol/L (3.5-5.1); Sodium 139.0 mmol/L (136-145)
[2025-04-27] MEDS: CEROVITE ADV FORMULA TAB PO SCH (08:43)
--- NOTE | 2025-04-27 09:34 | Gastroenterology Progress Note ---
Date of Service April 27, 2025 Assessment & Plan (1) Ulcerative colitis with rectal bleeding: Plan: I think a little worsening of his symptoms is not unusual with a flare but I encouraged him to continue eating. Can only continue steroids but if needed I see no problem with adding mesalamine to his treatment. He nees to get back on his biologics which is being worked on as an outpatient. He asked about a colonoscopy but I don't know that that will add a lot to his diagnosis--we know he has UC and CT shows evidence of a flare. He stopped biologic treatment so flare is not unusual after that. Admission and Anticipated Discharge Date Admission Date: April 25, 2025 Subjective Feels a little worse today. Feels like eating set him back to his original symptoms. Physical Exam Physical Exam: Looks good Constitutional: WD/WN, vitals as above Results & Data Vital Signs (Past 12 Hours) Vital Signs Temp Pulse Resp BP Pulse Ox O2 Del Method 04/27/25 08:00 36.6 C 81 18 102/66 97 Room Air 04/26/25 23:53 36.6 C 81 18 108/68 100 Room Air (1) Ulcerative colitis with rectal bleeding Ulcerative colitis location: unspecified ulcerative colitis location Qualified Code(s): K51.911 - Ulcerative colitis, unspecified with rectal bleeding
[2025-04-27] MEDS ORDERED: ERGOCALCIFEROL 1250 MCG (50,000 UNITS) CAP PO SCH (09:45)
[2025-04-27] MEDS: ERGOCALCIFEROL 1250 MCG (50,000 UNITS) CAP PO SCH (11:03)
[2025-04-27 11:15] LABS: Influenza A virus by PCR Negative (Neg); Influenza B virus by PCR Negative (Neg); SARS CoV2 RNA(COVID-19) Ceph NEGATIVE (Negative)
--- NOTE | 2025-04-27 21:40 | Hospitalist Progress Note ---
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 #uncontrolled/active ulcerative colitis - -modestly improved - less stooling, less blood -severe disease on CT scan with miller-colitis -infectious work-up -- stool Biofire, stool C diff -- all negative -GI consult appreciated -advised solumedrol 40mg IV BID - continue such, no wean today -hold budesonide & mesalamine while on IV steroids -defer additional Rx to GI (prednisone taper at d/c? re-initiation of biologic agent? adding back mesalamine?) -try holding IV fluids for now and allowing PO hydration -IV pepcid for GI prophylaxis while on high-dose steroids -IV toradol prn pain -GI yesterday advanced his diet to low fiber -if symptoms worsen on low fiber then revert back to liquids -recheck CBC, CRP in am #severe protein calorie malnutrition with weight loss - -2nd to uncontrolled ulcerative colitis -Fe studies suggest Fe def; he reports having had IV Fe in the past; consider IV venofer while here -B12, folate wnl -add MVI -consider protein supplement; consider formal dietary consultation -checked 25-OH vit D -- undetectable - see below #cough - -lung exam wnl -O2 sats wnl -2-view cxr wnl -likely upper respiratory in etiology #anemia - -2nd to blood loss last 2-3 weeks from UC -consider IV iron before discharge #leukocytosis - -likely 2nd to UC flare and steroids -stool BioFire, stool C diff negative -trend CBC #DVT Proph - -defer on chemical means while having active BRBPR #abnormal appendix on CT scan - -likely due to inflammation from his UC -doubt acute appendicitis de lelia -can follow #vitamin D deficiency - -2nd to UC, etc. -ergocalciferol 33360 units qweekly x 8 weeks, first dose now #fatigue/weakness - -2nd to UC flare, anemia, etc. -checked COVID/flu/RSV to ensure no other concomitant process -- these returned negative Admission and Anticipated Discharge Date Admission Date: April 25, 2025 Subjective frequency of stools has improved less bloody stools but still with discomfort "all over" but worse in the lower quadrants no vomiting no fevers no new symptoms Review of Systems Review of Systems: gen - fatigue, weakness cv - no cp, no edema pulm - no dyspnea, no mention of cough GI - no nausea Physical Exam Physical Exam: gen - thin, NAD, pleasant, looks better than at admission HENT - MMM heart - RRR, s1 s2, no murmur lungs - CTA b/l abd - mild tenderness to palpation lower quadrants, BS+, no HSM, ND, no peritoneal signs ext - no edema, pulses 2+ b/l feet psych - a/o x 3 skin - mild pallor Results & Data Results & Data Vital Signs (Past 12 Hours) Vital Signs Temp Pulse Resp BP Pulse Ox O2 Del Method 04/27/25 14:56 36.5 C 77 18 106/69 97 Room Air Laboratory Results Laboratory Results - last 24 hr 04/27/25 04/27/25 06:09 10:15 WBC 19.27 H RBC 3.81 L Hgb 11.6 L Hct 33.0 L MCV 86.6 MCH 30.4 MCHC 35.2 RDW Std Deviation 40.1 RDW Coeff of Chery 12.6 Plt Count 398 MPV 10.1 Absolute Nucleated RBC 0.02 Nucleated RBC % (auto) 0.1 Sodium 139 Potassium 4.2 Chloride 106 Carbon Dioxide 29 Anion Gap 4 BUN 9 Creatinine 0.63 Est Cr Clr Drug Dosing 143.7 eGFR 137.07 BUN/Creatinine Ratio 14.3 Glucose 129 H Calcium 8.3 L 25-OH Vitamin D Total < 7.0 L SARS-CoV-2 (PCR) NEGATIVE Influenza Type A (PCR) Negative Influenza Type B (PCR) Negative RSV (RT-PCR) Negative PG Care Time/CCT Total # of Minutes Spent Total Time Spent with Patient: Total time spent is greater than 50% in coordination of care (as documented) at patient's floor/unit and/or counseling patient: Coding Level of Care Code 65679 SUB INP/OBS CARE 2/35MIN Diagnoses Ulcerative colitis with rectal bleeding K51.911 Ulcerative colitis location: unspecified ulcerative colitis location Severe protein-calorie malnutrition E43 Weight loss R63.4 Cough R05.9 Anemia D64.9 Iron deficiency E61.1 Vitamin D deficiency E55.9 Fatigue R53.83 (1) Ulcerative colitis with rectal bleeding Ulcerative colitis location: unspecified ulcerative colitis location Qualified Code(s): K51.911 - Ulcerative colitis, unspecified with rectal bleeding
[2025-04-28] MEDS: LACTATED RINGER'S 1,000 ML IV SCH (06:15)
[2025-04-28 07:31] LABS: Hematocrit (blood only) 33.6 % (42.0-52.0); Hemoglobin 11.4 g/dl (14.0-18.0); Mean Corpuscular Hemoglobin 29.4 pg (25.0-34.0); Mean Corpuscular Volume 86.6 fL (80.0-100.0); Platelet Count 424 K/uL (130-400); RDW Standard Deviation 40.1 fL (36.4-46.3); Red Blood Count 3.88 M/uL (4.70-6.10); White Blood Count 21.32 K/ul (4.8-10.8)
[2025-04-28 07:51] LABS: Immature Granulocytes # (auto) 0.75 K/uL (0.01-0.20); Immature Granulocytes % (auto) 3.5 %; Polychromasia 1+; Toxic Granulation 1+; Toxic Vacuolation 2+
[2025-04-28 07:52] LABS: Anion Gap 7.0 (3-11); Blood Urea Nitrogen 8.0 mg/dl (6-23); Calcium 8.5 mg/dl (8.6-10.3); Carbon Dioxide 28.0 mmol/L (21-32); Chloride 104.0 mmol/L (98-107); Creatinine Clr Calc Pharmacy 156.1 ml/min; Glucose 111.0 mg/dl (70-99(Fasting)); Potassium 3.7 mmol/L (3.5-5.1); Sodium 139.0 mmol/L (136-145)
--- NOTE | 2025-04-28 08:42 | Gastroenterology Progress Note ---
Date of Service April 28, 2025 Assessment & Plan (1) Ulcerative colitis with rectal bleeding: Plan: He isn't improving like we would like to see. I will add oral mesalamine to his regimen. If this doesn't work will let his primary GI team decide about colono scopy Admission and Anticipated Discharge Date Admission Date: April 25, 2025 Subjective Had a bad night last night. Feels like he is regressing. Back to full liquid diet Physical Exam Physical Exam: He looks comfortable Constitutional: WD/WN, vitals as above Results & Data Vital Signs (Past 12 Hours) Vital Signs Temp Pulse Resp BP Pulse Ox O2 Del Method 04/28/25 07:45 36.3 C L 85 18 106/63 99 Room Air 04/27/25 23:13 36.4 C L 78 16 117/74 96 Room Air (1) Ulcerative colitis with rectal bleeding Ulcerative colitis location: unspecified ulcerative colitis location Qualified Code(s): K51.911 - Ulcerative colitis, unspecified with rectal bleeding
[2025-04-28] MEDS: MESALAMINE 400 MG CAPDR PO SCH ×2 (12:06→17:26)
--- NOTE | 2025-04-28 15:55 | Hospitalist Progress Note ---
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 #uncontrolled/active ulcerative colitis - -had modestly improved in the first 1-2 days of the hospital stay, but now symptoms and signs are back to where they were at time of admission -CRP has not improved with high-dose IV steroids since admission ( was 11, now 12 today) -severe disease on CT scan with miller-colitis -infectious work-up -- stool Biofire, stool C diff -- all negative -repeated a C diff today - again negative -GI consult appreciated -advised solumedrol 40mg IV BID - continue such, no change in dose today -hold budesonide PO -resume mesalamine per Dr Ling -defer additional Rx to GI (prednisone taper at d/c? re-initiation of biologic agent?) -since he is thus far not appreciably improving on high-dose steroids will he need repeat endoscopic evaluation to rule out other processes? (CMV infection, etc) -defer to GI -resumed IV fluids -downgraded diet to full liquids -IV pepcid for GI prophylaxis while on high-dose steroids -IV toradol - schedule 3 doses for pain every 6 hours -scheduled tylenol TID for pain #severe protein calorie malnutrition with weight loss - -2nd to uncontrolled ulcerative colitis -Fe studies suggest Fe def; he reports having had IV Fe in the past; consider IV venofer while here -B12, folate wnl -added MVI -replace low vit D -appreciate dietary consultation and recs for supplements #cough - -lung exam wnl -O2 sats wnl -2-view cxr wnl -likely upper respiratory in etiology -has not complained of this in several days #anemia - -2nd to blood loss last 2-3 weeks from UC -consider IV iron #leukocytosis - -likely 2nd to UC flare itself and steroids -stool BioFire, stool C diff negative -trend CBC #DVT Proph - -defer on chemical means while having active BRBPR #abnormal appendix on CT scan - -likely due to inflammation from his UC -doubt acute appendicitis de lelia -can follow #vitamin D deficiency - -undetectable level -2nd to poor dietary intake, malabsorption from UC, etc. -ergocalciferol 88777 units qweekly x 8 weeks #fatigue/weakness - -2nd to UC flare, anemia, etc. -checked COVID/flu/RSV to ensure no other concomitant process -- these returned negative Admission and Anticipated Discharge Date Admission Date: April 25, 2025 Subjective continues with diffuse abd pain low fiber diet was seemingly making things feel worse the # of stools has gotten worse again, and the # of bloody BMs has also gotten worse once again diet downgraded to full liquids thinks maybe the liquids is helping "a little" "the IV fluids help me feel better" no nausea or emesis he is dismayed by his lack of progress Review of Systems Review of Systems: gen - no fevers or chills cv - no chest pain pulm - no dyspnea GI - see HPI Physical Exam Physical Exam: gen - thin, NAD, sitting in chair, looks similar to yesterday HENT - MMM, no lesions heart - RRR, s1 s2, no murmur lungs - CTA b/l abd - mild tenderness to palpation lower quadrants, BS+, no HSM, ND, no peritoneal signs ext - no edema, pulses 2+ b/l feet psych - a/o x 3 skin - mild pallor Results & Data Results & Data Vital Signs (Past 12 Hours) Vital Signs Temp Pulse Resp BP Pulse Ox O2 Del Method 04/28/25 15:32 36.4 C L 68 17 116/71 99 Room Air 04/28/25 07:45 36.3 C L 85 18 106/63 99 Room Air Laboratory Results Laboratory Results - last 24 hr 04/28/25 04/28/25 07:13 18:58 WBC 21.32 H RBC 3.88 L Hgb 11.4 L Hct 33.6 L MCV 86.6 MCH 29.4 MCHC 33.9 RDW Std Deviation 40.1 RDW Coeff of Chery 12.7 Plt Count 424 H MPV 9.6 Immature Gran % (Auto) 3.5 Neut % (Auto) 74.0 Lymph % (Auto) 11.8 [place] % (Auto) 9.8 Eos % (Auto) 0.1 Baso % (Auto) 0.8 Neut # (Auto) 15.75 H Lymph # (Auto) 2.52 [place] # (Auto) 2.10 H Eos # (Auto) 0.03 Baso # (Auto) 0.17 Immature Gran # (Auto) 0.75 H Absolute Nucleated RBC 0.03 Nucleated RBC % (auto) 0.1 Toxic Granulation 1+ Toxic Vacuolation 2+ Polychromasia 1+ Sodium 139 Potassium 3.7 Chloride 104 Carbon Dioxide 28 Anion Gap 7 BUN 8 Creatinine 0.58 L Est Cr Clr Drug Dosing 156.1 eGFR 140.54 BUN/Creatinine Ratio 13.8 Glucose 111 H Calcium 8.5 L C-Reactive Protein 12.10 H Stl C. diff Tox B Gene Negative Cdiff Gene Stl C. diff [id number]-[id number] NEGATIVE PG Care Time/CCT Total # of Minutes Spent Total Time Spent with Patient: Total time spent is greater than 50% in coordination of care (as documented) at patient's floor/unit and/or counseling patient: Coding Level of Care Code 85214 SUB INP/OBS CARE 235MIN Diagnoses Ulcerative colitis with rectal bleeding K51.911 Ulcerative colitis location: unspecified ulcerative colitis location Severe protein-calorie malnutrition E43 Weight loss R63.4 Cough R05.9 Anemia D64.9 Iron deficiency E61.1 Vitamin D deficiency E55.9 Fatigue R53.83 (1) Ulcerative colitis with rectal bleeding Ulcerative colitis location: unspecified ulcerative colitis location Qualified Code(s): K51.911 - Ulcerative colitis, unspecified with rectal bleeding
[2025-04-28] MEDS: KETOROLAC 30 MG/ML VIAL IV SCH (17:25)
[2025-04-28] MEDS: ACETAMINOPHEN 325 MG TAB PO SCH (17:25)
[2025-04-28 19:50] LABS: Cdiff Toxin B Gene (2yr or >) Negative Cdiff Gene (Neg)
[2025-04-28] MEDS: NSS + 20MEQ KCL 20 MEQ/1,000 ML BAG IV SCH (21:47)
[2025-04-28] MEDS ORDERED: COUGH DROP (SUGAR FREE) LOZ 24 LOZ/1 BOX BUCCAL PRN (22:00)
[2025-04-28] MEDS: COUGH DROP (SUGAR FREE) LOZ 24 LOZ/1 BOX BUCCAL ONE (22:01)
[2025-04-29 07:37] LABS: Hematocrit (blood only) 32.0 % (42.0-52.0); Hemoglobin 10.9 g/dl (14.0-18.0); Mean Corpuscular Hemoglobin 29.5 pg (25.0-34.0); Mean Corpuscular Volume 86.5 fL (80.0-100.0); Platelet Count 390 K/uL (130-400); RDW Standard Deviation 39.7 fL (36.4-46.3); Red Blood Count 3.70 M/uL (4.70-6.10); White Blood Count 16.24 K/ul (4.8-10.8)
[2025-04-29 08:06] LABS: Anion Gap 6.0 (3-11); Blood Urea Nitrogen 10.0 mg/dl (6-23); Calcium 8.3 mg/dl (8.6-10.3); Carbon Dioxide 27.0 mmol/L (21-32); Chloride 106.0 mmol/L (98-107); Creatinine Clr Calc Pharmacy 153.4 ml/min; Glucose 112.0 mg/dl (70-99(Fasting)); Potassium 4.3 mmol/L (3.5-5.1); Sodium 139.0 mmol/L (136-145)
--- NOTE | 2025-04-29 09:04 | Gastroenterology Progress Note ---
Date of Service April 29, 2025 Assessment & Plan (1) Ulcerative colitis with rectal bleeding: Plan: 24 year old male w/ history of ulcerative colitis diagnosed around 2023 treated w/ Remicade but off therapy since 09/2024 admitted w/ ulcerative colitis flare de spite initiation of outpatient therapy CTAP w/ progression of the diffuse proctocolitis, stool PCR negative, c.diff negative, elevated fecal calprotectin at 3100 plan to restart therapy w/ humira. - NPO after midnight for colonoscopy 04/30 - Continue IV steroids at present dosing - Continue oral mesalamine at present dosing - Start authorization for humira - Consent to treat signed - Check acute hepatitis panel w/ hep b titers - Check quant gold - Plan for SUBQ [id number] mg (day 1) then 80 mg (day 15) then 40 mg every other week beginning on day 29 - Risks and benefits were discussed including risk of infection and cancer - There is increased risk of developing serious infections that may lead to hospitalization or - There is risk of TB infection, including reactivation of latent TB. You should be closely monitored for the development of signs and symptoms of infection during and after treatment - Although rare, lymphoma and other malignancies, have been reported in children and adolescent patients treated with tumor necrosis factor (TNF) blockers - No live vaccinations - Yearly flu shot - Please discuss Flu, COVID-19, HPV, Shingrix, PPSV 23 and Hep B boosters with your primary care provider We appreciate assistance in the management of any serological abnormality and corrections to include: hemoglobin >7, INR <2, platelets >50,000, potassium levels >3.5 but <5.3, and sodium levels within 5 points of the reference range prior to endoscopic evaluation. Thank you for allowing us to participate in the care of this patient. Please call with any acute changes, questions or concerns. Please see addendum below with additional recommendation from my supervising physician. I spent a total of 40 minutes on the date of service in review of patient's record, and previously obtained information in person and appropriate medical visit, discussion and education of plan, with patient and/or caregiver, placing orders for tests/referral/procedures as medically necessary and documentation of pertinent clinical information in patient's medical records for their visit today. Admission and Anticipated Discharge Date Admission Date: April 25, 2025 Supervising Physician Co-Signing Physician Notes Appears to have pancolitis which is extension over his historical disease. Poor response to steroids. Previously good response to Remicade. He has been off Remicade close to 6 months at present. I believe this patient will need to be started on biological therapy as soon as possible. There is a potential risk to giving Remicade back after 6 months absence. Therefore I think Humira may be a better option. We will work to get this expedited and available to soon as possible. May need to be discharged to receive loading dose. Flexible sigmoidoscopy to evaluate for other etiology such as CMV. This will be done tomorrow. This gentleman has significant active colitis in the severe range. At risk of deterioration including development of toxic megacolon. Abdomen quite benign. White count decreasing which is a good sign. Subjective Pt was seen and evaluated, chart reviewed. Unchanged symptoms. Ongoing abd pain. Loose, watery output w/ mucous. At least once an hour. No fever, chills, CP, SOB. WBC 21 --> 16 CRP 2 --> 11 --> 12 Stool calprotectin 3100 Stool PCR negative 04/19 Stool PCR negative 04/25 C.diff negative 04/19 C.diff negative 04/25 C.diff negative 04/28 CTAP 04/25: Mild progression of the diffuse proctocolitis compatible with the patient's clinical history of inflammatory bowel disease/ulcerative colitis. Pericolonic lymph nodes are likely reactive. No bowel obstruction or pneumoperitoneum. Dilated fluid-filled appendix is likely secondary to the aforementioned colitis. CTAP 04/19: Mild to moderate colitis from the left colon to the rectum, consistent with the given history of ulcerative colitis. No evidence of perforation, abscess, or bowel obstruction seen. Review of Systems Review of Systems: All other findings negative except as noted in HPI. Physical Exam Gastrointestinal (Abdomen): Inspection/Auscultation: abdomen normal to inspection and normal bowel sounds Percussion/Palpation: + abdomen tender and abdomen soft; no guarding and abdomen not rigid Results & Data Results & Data Vital Signs (Past 12 Hours) Vital Signs Temp Pulse Resp BP Pulse Ox O2 Del Method 04/29/25 07:51 98.1 F 84 16 106/65 97 Room Air 04/28/25 23:11 97.5 F L 70 18 110/74 96 Room Air 04/28/25 21:43 69 18 105/70 96 Room Air Laboratory Results 04/29/25 04/28/25 Range/Units 06:56 18:58 WBC 16.24 H (4.8-10.8) K/ul RBC 3.70 L (4.70-6.10) M/uL Hgb 10.9 L (14.0-18.0) g/dl Hct 32.0 L (42.0-52.0) % MCV 86.5 (80.0-100.0) fL MCH 29.5 (25.0-34.0) pg MCHC 34.1 (32.0-36.0) g/dL RDW Std Deviation 39.7 (36.4-46.3) fL RDW Coeff of Chery 12.6 (11.5-14.5) % Plt Count 390 (130-400) K/uL MPV 9.4 (9.4-12.4) fL Absolute Nucleated RBC 0.05 (0.00-0.12) K/uL Nucleated RBC % (auto) 0.3 % Sodium 139 (136-145) mmol/L Potassium 4.3 (3.5-5.1) mmol/L Chloride 106 (98-107) mmol/L Carbon Dioxide 27 (21-32) mmol/L Anion Gap 6 (3-11) BUN 10 (6-23) mg/dl Creatinine 0.59 L (0.6-1.4) mg/dl Est Cr Clr Drug Dosing 153.4 ml/min eGFR 139.81 BUN/Creatinine Ratio 16.9 (10-20) Glucose 112 H (70-99(Fasting)) mg/dl Calcium 8.3 L (8.6-10.3) mg/dl Stl C. diff Tox B Gene Negative Cdiff Gene (Neg) Stl C. diff [id number] NEGATIVE PG Care Time/CCT Total # of Minutes Spent Total Time Spent with Patient: Total time spent is greater than 50% in coordination of care (as documented) at patient's floor/unit and/or counseling patient: Coding Level of Care Code 96088 SUB INP/OBS CARE 235MIN Diagnoses Ulcerative colitis with rectal bleeding K51.911 Ulcerative colitis location: unspecified ulcerative colitis location (1) Ulcerative colitis with rectal bleeding Ulcerative colitis location: unspecified ulcerative colitis location Qualified Code(s): K51.911 - Ulcerative colitis, unspecified with rectal bleeding
[2025-04-29 10:42] LABS: Alanine Aminotransferase 11.0 U/L (7-52); Albumin Level 3.1 gm/dl (3.4-5.0); Alkaline Phosphatase 69.0 U/L (34-104); Bilirubin,Total 0.4 mg/dl (0.2-1.0); Total Protein 6.3 gm/dl (6.0-8.3)
[2025-04-29 11:13] LABS: Hep B Surface Ag with confirm Negative (Negative)
[2025-04-29 11:18] LABS: Hep C Ab Rflx HepCQuant RNA Negative (Negative)
[2025-04-29] MEDS: PPD CHECK SCH (14:50)
[2025-04-29] MEDS: [UNRECOGNIZED DRUG - MIXTURE] ID ONE (14:52)
--- NOTE | 2025-04-29 14:59 | Hospitalist Progress Note ---
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 #uncontrolled/active ulcerative colitis - -had modestly improved in the first 1-2 days of the hospital stay, but now symptoms and signs are back to where they were at time of admission -CRP has not improved with high-dose IV steroids since admission (was 11, now 12 today compared to 2.5 04/19) -severe disease on CT scan with miller-colitis -infectious work-up -- stool Biofire, stool C diff -- all negative -repeated a C diff today - again negative -GI consult appreciated -advised solumedrol 40mg IV BID - continue such, no change in dose today -hold budesonide PO -resume mesalamine 400mg BID per Dr Ling -defer additional Rx to GI: Recommend restarting biologic therapy with Humira, PPD ordered, colonoscopy tomorrow in AM with further recommendations to follow -resumed IV fluids -downgraded diet to full liquids -IV pepcid for GI prophylaxis while on high-dose steroids -IV toradol - schedule 3 doses for pain every 6 hours -scheduled tylenol 1000mg TID for pain #severe protein calorie malnutrition with weight loss - -2nd to uncontrolled ulcerative colitis -Fe studies suggest Fe def; he reports having had IV Fe in the past; consider IV venofer while here -B12, folate wnl -added MVI -replace low vit D; ergocalciferol therapy -appreciate dietary consultation and recs for supplements #cough - -lung exam wnl -O2 sats wnl -2-view cxr wnl -likely upper respiratory in etiology -has not complained of this in several days -resolved #anemia - -2nd to blood loss last 2-3 weeks from UC -Basline hgb: 15, current: 10.9 -consider IV iron #leukocytosis - -likely 2nd to UC flare itself and steroids -stool BioFire, stool C diff negative -trend CBC, improving #DVT Proph - -defer on chemical means while having active BRBPR #abnormal appendix on CT scan - -likely due to inflammation from his UC -doubt acute appendicitis de lelia -can follow #vitamin D deficiency - -undetectable level -2nd to poor dietary intake, malabsorption from UC, etc. -ergocalciferol 35496 units qweekly x 8 weeks #fatigue/weakness - -2nd to UC flare, anemia, etc. -checked COVID/flu/RSV to ensure no other concomitant process -- these returned negative Admission and Anticipated Discharge Date Admission Date: April 25, 2025 Supervising Physician Co-Signing Physician Notes Attending Attestation & Progress Note: Pt seen/examined, chart reviewed, care plan d/w resident physician Dr Albert Elizabeth. I agree w/ the churchill components of his progress note documentation. Patient continues to have abdominal discomfort. He received IV toradol yesterday but didn't notice any improvement in his pain with such. Denies vomiting. He is sad about his lack of progress. He is aware of flex sig tomorrow and GI's plan for Humira. VSS, afebrile gen - looks same as yesterday mouth - MMM, no lesions heart - RRR, s1 s2, no murmur lungs - CTA b/l abd - soft NT ND BS+, no HSM ext - no edema labs reviewed - WBC 16 repeat c diff neg A/P: 1. UC Flare - ongoing despite high dose IV steroids 2. severe protein calorie malnutrition 3. acute blood loss anemia 2nd to GI bleeding from #1 appreciate GI assistance flex sig tomorrow; agree w/ ruling out CMV colitis agree with biologic therapy w/ Humira cont IV fluids & restricted diet cont IV solumedrol along w/ mesalamine consider IV venofer later in the stay Christopher Elkins is seen resting at bedside this AM. Patient rates his abdominal pain and low back pain at a 7/10 currently and reports that previous UC flares have been similar causing significant abdominal and low back tenderness. Patient reports that he has been able to tolerate low-fiber and liquid diets without increased abdominal tenderness but endorses that the low-fiber diet caused him to need to use the bathroom more often and the majority of his pain spikes during and shortly after BMs. Patient does endorse being overwhelmed and distraught with this most recent UC flare and the financial difficulties of purchasing his biologic medication without insurance if necessary. Patient does remain afebrile and hemodynamically stable. Physical Exam Physical Exam: General: patient resting comfortably, NAD, non-toxic in appearance, answers questions appropriately. Skin: warm, dry, intact HEENT: NC/AT, anicteric sclera, conjunctiva without injection, moist mucus membranes. Heart: +S1/S2, regular, no m/r/g Lungs: equal air entry bilaterally, no rales/rhonchi/wheezes Abd: +BS, soft, ND, Tenderness present as band along lower abdomen with radiation to his RUQ and LUQ. Ext: warm, no clubbing/cyanosis or edema Neuro: nonfocal, speech intact, no facial droop, moving all extremities. Results & Data Results & Data Vital Signs (Past 12 Hours) Vital Signs Temp Pulse Resp BP Pulse Ox O2 Del Method 04/29/25 07:51 36.7 C 84 16 106/65 97 Room Air Resident Activity Tracking Resident Involvement: Resident Care Provided Care Provided: Adult Hospital Medicine (1) Ulcerative colitis with rectal bleeding Ulcerative colitis location: unspecified ulcerative colitis location Qualified Code(s): K51.911 - Ulcerative colitis, unspecified with rectal bleeding
--- NOTE | 2025-04-29 18:28 | Billing Data ---
Date of Service April 29, 2025 Coding Level of Care Code 89943 SUB INP/OBS CARE
--- NOTE | 2025-04-30 07:30 | Hospitalist Progress Note ---
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 #uncontrolled/active ulcerative colitis - -had modestly improved in the first 1-2 days of the hospital stay, but now symptoms and signs are back to where they were at time of admission -CRP has not improved with high-dose IV steroids since admission (was 11, now 12 today compared to 2.5 10) -severe disease on CT scan with miller-colitis -infectious work-up -- stool Biofire, stool C diff -- all negative -repeated a C diff today - again negative -GI consult appreciated -advised solumedrol 40mg IV BID - continue such, no change in dose today -hold budesonide PO -resume mesalamine 400mg BID -defer additional Rx to GI: Recommend restarting biologic therapy with Humira - insurance denied -Similar biologic medication sent for authorization, approval information by 9AM tomorrow -Flex sigmoid scope procedure and studies pending -resumed IV fluids -downgraded diet to NPO for bowel rest, PPN can be considered if diet cannot be advanced post scope -Pain control: IV Tylenol 1g Q8H, IV Toradol 30mg Q6H, IV Pepcid. Consider opioid therapy if pain is refractory to management #severe protein calorie malnutrition with weight loss - -2nd to uncontrolled ulcerative colitis -Fe studies suggest Fe def; he reports having had IV Fe in the past; consider IV venofer while here -B12, folate wnl -added MVI -replace low vit D; ergocalciferol therapy -appreciate dietary consultation and recs for supplements #cough - -lung exam wnl -O2 sats wnl -2-view cxr wnl -likely upper respiratory in etiology -has not complained of this in several days -resolved #anemia - -2nd to blood loss last 2-3 weeks from UC -Basline hgb: 15, current: 10.9 -consider IV iron #leukocytosis - -likely 2nd to UC flare itself and steroids -stool BioFire, stool C diff negative -trend CBC, improving #DVT Proph - -defer on chemical means while having active BRBPR #abnormal appendix on CT scan - -likely due to inflammation from his UC -doubt acute appendicitis de lelia -can follow #vitamin D deficiency - -undetectable level -2nd to poor dietary intake, malabsorption from UC, etc. -ergocalciferol 36354 units qweekly x 8 weeks #fatigue/weakness - -2nd to UC flare, anemia, etc. -checked COVID/flu/RSV to ensure no other concomitant process -- these returned negative Admission and Anticipated Discharge Date Admission Date: April 25, 2025 Supervising Physician Co-Signing Physician Notes Attending Attestation & Progress Note: Pt seen/examined, chart reviewed, care plan d/w resident physician Dr Albert Elizabeth. I agree w/ the churchill components of his progress note documentation. Patient just took an enema in preparation for flex sig. He was very emotional today and tearful. We offered to call his mother today to give an update. We offered mental health counselor visit, pet therapy visit, online project manager visit - not terribly interested. Continues with ongoing abd pain and bloody stools; no improvement. VSS, afebrile gen - looks same as yesterday, tearful, thin mouth - MMM, no lesions heart - RRR, s1 s2, no murmur lungs - CTA b/l abd - soft NT ND BS+, no HSM - no peritoneal signs ext - no edema skin - pallor labs reviewed - wbc count today worse at 23.9 (previously 16) A/P: 1. severe UC Flare - ongoing despite high dose IV steroids + mesalamine 2. severe protein calorie malnutrition 3. acute blood loss anemia 2nd to GI bleeding from #1 4. adjustment disorder/acute anxiety - due to #1 flex sig today; rule out CMV colitis, c diff colitis, other superimposed processes agree with biologic therapy w/ Humira - insurance auth pending cont IV fluids & restricted diet (clears) -d/w GI - should we consider bowel rest and add PPN or TPN?? cont IV solumedrol along w/ mesalamine consider IV venofer later in the stay consider dedicated mood agent offered behavioral health liaison/online project manager/pet therapy --patient thus far not interested appreciate GI & gen surg assistance Christopher Dennis MD Subjective Severo Agee is seen resting this AM. Patient endorses ongoing diffuse abdominal pain worse in lower quadrants. Patient reports pain has been constant and worsened with defecation and that BMs are have been bloody with mucous. Patient is scheduled for colonoscopy later today and endorses that his enema prior to procedure was very painful. Patient is trying to stay motivated to recover, but has been feeling more down and depressed due to the constant pain and anxiety of further testing and insurance approval for his biologic medication. Patient remains afebrile and hemodynamically stable. Physical Exam Physical Exam: General: patient resting comfortably, NAD, non-toxic in appearance, answers questions appropriately. Skin: warm, dry, intact HEENT: NC/AT, anicteric sclera, conjunctiva without injection, moist mucus membranes. Heart: +S1/S2, regular, no m/r/g Lungs: equal air entry bilaterally, no rales/rhonchi/wheezes Abd: +BS, soft, ND, Tenderness present as band along lower abdomen with radiation to his RUQ and LUQ. Ext: warm, no clubbing/cyanosis or edema Neuro: nonfocal, speech intact, no facial droop, moving all extremities. Results & Data Results & Data Vital Signs (Past 12 Hours) Vital Signs Temp Pulse Resp BP Pulse Ox O2 Del Method 04/29/25 22:51 36.9 C 71 14 111/70 97 Room Air Resident Activity Tracking Resident Involvement: Resident Care Provided Care Provided: Adult Hospital Medicine (1) Ulcerative colitis with rectal bleeding Ulcerative colitis location: unspecified ulcerative colitis location Qualified Code(s): K51.911 - Ulcerative colitis, unspecified with rectal bleedin g
[2025-04-30 08:05] LABS: Hematocrit (blood only) 35.3 % (42.0-52.0); Hemoglobin 11.7 g/dl (14.0-18.0); Mean Corpuscular Hemoglobin 29.0 pg (25.0-34.0); Mean Corpuscular Volume 87.4 fL (80.0-100.0); Platelet Count 499 K/uL (130-400); RDW Standard Deviation 39.8 fL (36.4-46.3); Red Blood Count 4.04 M/uL (4.70-6.10); White Blood Count 23.92 K/ul (4.8-10.8)
[2025-04-30 08:20] LABS: Anion Gap 7.0 (3-11); Blood Urea Nitrogen 9.0 mg/dl (6-23); Calcium 8.7 mg/dl (8.6-10.3); Carbon Dioxide 29.0 mmol/L (21-32); Chloride 102.0 mmol/L (98-107); Creatinine Clr Calc Pharmacy 143.7 ml/min; Glucose 116.0 mg/dl (70-99(Fasting)); Potassium 4.3 mmol/L (3.5-5.1); Sodium 138.0 mmol/L (136-145)
[2025-04-30 08:47] LABS: Immature Granulocytes # (auto) 1.17 K/uL (0.01-0.20); Immature Granulocytes % (auto) 4.9 %
[2025-04-30] MEDS: SOD PHOSPHATE/SOD BIPHOSPHATE ENEMA 132 ML BTL PR STA (10:06)
[2025-04-30 10:07] LABS: Quantiferon TB1 0.048 IU/mL; Quantiferon TB2 0.046 IU/mL
--- NOTE | 2025-04-30 10:08 | Gastroenterology Progress Note ---
Date of Service April 30, 2025 Assessment & Plan (1) Ulcerative colitis with rectal bleeding: Plan: 24 year old male w/ history of ulcerative colitis diagnosed around 2023 treated w/ Remicade but off therapy since 09/2024 admitted w/ ulcerative colitis flare de spite initiation of outpatient therapy CTAP w/ progression of the diffuse proctocolitis, stool PCR negative, c.diff negative, elevated fecal calprotectin at 3100 plan to restart therapy w/ humira. - Fleets enema/Tap water enema today - Maintain NPO status for Flex Sig anticipated 04/30 - No response to IV steroids - Continue IV steroids at present dosing - Continue oral mesalamine at present dosing - Colorectal surgery consultation placed - Authorization for humira started 04/29 - Consent to treat signed 04/29 - Immune to Hep B - Follow PPD - Quant gold pending - Plan for SUBQ [id number] mg (day 1) then 80 mg (day 15) then 40 mg every other week beginning on day 29 - Risks and benefits were discussed including risk of infection and cancer - There is increased risk of developing serious infections that may lead to hospitalization or - There is risk of TB infection, including reactivation of latent TB. You should be closely monitored for the development of signs and symptoms of infection during and after treatment - Although rare, lymphoma and other malignancies, have been reported in children and adolescent patients treated with tumor necrosis factor (TNF) blo ckers - No live vaccinations - Yearly flu shot - Please discuss Flu, COVID-19, HPV, Shingrix, PPSV 23 and Hep B boosters with your primary care provider We appreciate assistance in the management of any serological abnormality and corrections to include: hemoglobin >7, INR <2, platelets >50,000, potassium levels >3.5 but <5.3, and sodium levels within 5 points of the reference range prior to endoscopic evaluation. Thank you for allowing us to participate in the care of this patient. Please call with any acute changes, questions or concerns. Please see addendum below with additional recommendation from my supervising physician. Admission and Anticipated Discharge Date Admission Date: April 25, 2025 Supervising Physician Co-Signing Physician Notes This continue with active symptoms. Abdomen still benign. Increased symptoms with an enema which would be expected. He has been seen by colorectal surgery which is certainly increased his concerns. At this point this is a precautionary measure. In case there was the development of toxic colitis. Reviewed with the patient today the purpose of the examination is reestablish the diagnosis of ulcerative colitis and allow biopsies for CMV. I do not plan a full colonoscopy as I think it increases the risk of the procedure in this patient with a sick colon. Patient's mother Alanis will be called with an update following today's procedure. Still waiting on biological approval. Subjective NPO for FlexSig. Worsening abd pain. Ongoing bloody, mucous stool every hour, if not more. No black stools. No nausea/vomiting. WBC 21 --> 16 --> 23 CRP 2 --> 11 --> 12 Albumin 3.1 Stool calprotectin 3100 Stool PCR negative 04/19 Stool PCR negative 04/25 C.diff negative 04/19 C.diff negative 04/25 C.diff negative 04/28 CTAP 04/25: Mild progression of the diffuse proctocolitis compatible with the patient's clinical history of inflammatory bowel disease/ulcerative colitis. Pericolonic lymph nodes are likely reactive. No bowel obstruction or pneumoperitoneum. Dilated fluid-filled appendix is likely secondary to the aforementioned colitis. CTAP 04/19: Mild to moderate colitis from the left colon to the rectum, consistent with the given history of ulcerative colitis. No evidence of perforation, abscess, or bowel obstruction seen. Review of Systems Review of Systems: All other findings negative except as noted in HPI. Physical Exam Constitutional: WD/WN, vitals as above Gastrointestinal (Abdomen): Inspection/Auscultation: normal bowel sounds Percussion/Palpation: + abdomen tender and abdomen soft; no guarding and abdomen not rigid Skin: no rashes, warm and dry Results & Data Results & Data Vital Signs (Past 12 Hours) Vital Signs Temp Pulse Resp BP Pulse Ox O2 Del Method 04/30/25 07:35 98.1 F 67 16 114/75 97 Room Air 04/29/25 22:51 98.4 F 71 14 111/70 97 Room Air Laboratory Results 04/30/25 04/29/25 Range/Units 07:02 10:01 WBC 23.92 H (4.8-10.8) K/ul RBC 4.04 L (4.70-6.10) M/uL Hgb 11.7 L (14.0-18.0) g/dl Hct 35.3 L (42.0-52.0) % MCV 87.4 (80.0-100.0) fL MCH 29.0 (25.0-34.0) pg MCHC 33.1 (32.0-36.0) g/dL RDW Std Deviation 39.8 (36.4-46.3) fL RDW Coeff of Chery 12.5 (11.5-14.5) % Plt Count 499 H (130-400) K/uL MPV 9.6 (9.4-12.4) fL Immature Gran % (Auto) 4.9 % Neut % (Auto) 75.1 % Lymph % (Auto) 11.9 % [place] % (Auto) 8.0 % Eos % (Auto) 0.0 % Baso % (Auto) 0.1 % Neut # (Auto) 17.96 H (1.40-6.50) K/uL Lymph # (Auto) 2.84 (1.20-3.40) K/uL [place] # (Auto) 1.91 H (0.11-0.59) K/uL Eos # (Auto) 0.01 (0.00-0.50) K/uL Baso # (Auto) 0.03 (0.00-0.20) K/uL Immature Gran # (Auto) 1.17 H (0.01-0.20) K/uL Absolute Nucleated RBC 0.06 (0.00-0.12) K/uL Nucleated RBC % (auto) 0.3 % Sodium 138 (136-145) mmol/L Potassium 4.3 (3.5-5.1) mmol/L Chloride 102 (98-107) mmol/L Carbon Dioxide 29 (21-32) mmol/L Anion Gap 7 (3-11) BUN 9 (6-23) mg/dl Creatinine 0.63 (0.6-1.4) mg/dl Est Cr Clr Drug Dosing 143.7 ml/min eGFR 137.07 BUN/Creatinine Ratio 14.3 (10-20) Glucose 116 H (70-99(Fasting)) mg/dl Calcium 8.7 (8.6-10.3) mg/dl Total Bilirubin 0.4 (0.2-1.0) mg/dl Direct Bilirubin 0.1 (0-0.2) mg/dl AST 10 L (13-39) U/L ALT 11 (7-52) U/L Alkaline Phosphatase 69 (34-104) U/L Total Protein 6.3 (6.0-8.3) gm/dl Albumin 3.1 L (3.4-5.0) gm/dl Hepatitis A IgM Ab Pending Hep Bs Antigen Negative (Negative) Hep Bs Antibody Immune Hep Bs Antibody, Quant > 500.00 (>or=10mIU/mL Immune) mIU/mL Hep B Core IgM Ab Pending Hepatitis C Antibody Negative (Negative) TB Test (QFT) Nil Pending TB Test (QFT) Mitogen Pending TB Test (QFT) Ag 1 Pending TB Test (QFT) Ag 2 Pending PG Care Time/CCT Total # of Minutes Spent Total Time Spent with Patient: Total time spent is greater than 50% in coordination of care (as documented) at patient's floor/unit and/or counseling patient: Coding Level of Care Code None Diagnoses Ulcerative colitis with rectal bleeding K51.911 Ulcerative colitis location: unspecified ulcerative colitis location (1) Ulcerative colitis with rectal bleeding Ulcerative colitis location: unspecified ulcerative colitis location Qualified Code(s): K51.911 - Ulcerative colitis, unspecified with rectal blee ding
[2025-04-30 11:27] LABS: Hepatitis A Antibody IgM NON-REACTIVE (NON-REACTIVE); Hepatitis B Core Antibody IgM NON-REACTIVE (NON-REACTIVE)
--- NOTE | 2025-04-30 14:40 | Anesthesiology Consultation ---
Date of Service April 30, 2025 Assessment & Plan Chart Review Chart Review: Acceptable Risk for Surgery and Patient NOT seen in Pre Admission Testing Consults Requested none ASA ASA3 Proposed Anesthesia Anesthesia Type: MAC History Surgery Operation Date: 04/30/25 16:30 Proposed Procedures p Colonoscopy Dr. Pancho Deleon MD Height/Weight Height: 5 ft 6 in Weight: 55.7 kg Allergies Allergy/AdvReac Type Severity Reaction Status Date / Time No Known Allergies Allergy Verified 04/25/25 09:59 Medications Home Medications Medication Instructions Recorded Confirmed Last Taken budesonide 3 mg 9 mg (3 x 3 mg) PO DAILY 30 days 04/19/25 04/25/25 Unknown capsule,delayed,extended release #90 ea mesalamine 1,000 mg rectal 1 g [place] HS 30 days #30 ea 04/19/25 04/25/25 Unknown suppository adalimumab-aacf 40 mg/0.8 mL See Rx Instructions subcut 04/30/25 04/30/25 Unknown subcutaneous pen kit .COMPLEX #4 ea (adalimumab-aacf(CF) pen Crohn's-[facility] Starter) Active Medications Generic Name Dose Route Start Last Admin Trade Name Freq PRN Reason Stop Dose Admin Acetaminophen 650 mg 04/28/25 16:00 04/30/25 14:11 Acetaminophen 325 Mg Tab PO 05/28/25 15:59 Not Given TID DELFINO Ergocalciferol 1,250 mcg 04/27/25 10:00 04/27/25 11:03 Ergocalciferol 1250 Mcg (50,000 Units) Cap PO 05/27/25 09:44 1,250 mcg Q7D DELFINO Administration Methylprednisolone 40 mg/ 0.64 mls @ 1.5 mls/min 04/25/25 21:00 04/30/25 08:54 Syringe IV 05/25/25 20:59 1.5 mls/min Q12H DELFINO Administration Famotidine 20 mg in 5 mls @ 2.5 mls/min 04/25/25 16:45 04/30/25 05:15 Pepcid 20mg Iv Push IV 05/25/25 16:44 2.5 mls/min Q12H DELFINO Administration Potassium Chloride/Sodium Chloride 20 meq in 1,000 mls @ 75 mls/hr 04/28/25 21:00 04/30/25 01:41 Normal Saline W/20 Meq Kcl IV 05/01/25 20:59 75 mls/hr .[id number] DELFINO Administration Mesalamine 400 mg 04/28/25 09:00 04/28/25 13:11 Mesalamine 400 Mg Capdr PO 05/28/25 08:59 400 mg QID DELFINO Administration Mesalamine 400 mg 04/28/25 17:00 04/30/25 13:53 Mesalamine 400 Mg Capdr PO 05/28/25 16:59 400 mg QID DELFINO Administration Miscellaneous 1 each 04/29/25 13:37 04/29/25 14:50 Ppd Check N/A 05/01/25 13:38 1 each Q48H DELFINO Administration Multivitamins/Minerals 1 tab 04/27/25 09:00 04/30/25 08:54 Cerovite Adv Formula Tab PO 05/27/25 08:59 1 tab QAM DELFINO Administration NPO Last Intake of Fluids Comment: last clears at midnight per patient Last Intake of Solids Comment: per patient, "only liquids for a few days now". Past Medical History Medical History Ulcerative colitis with rectal bleeding anemia protein calorie malnutrition weight loss Exercise / Class Metabolic Activity II 4-5 Yardwork/Stairs/Walk up hill Past Family History Family History Mother Hypothyroidism due to Kirsten's thyroiditis Family/Other Diabetes cousin - type 1 Denies family history of Inflammatory bowel disease Past Surgical History Surgical History No pertinent past surgical history Past Anesthesia History No Hx of Anesthesia Complications and No Family Hx of Anesthesia Complications History of PONV No Hx of PONV and No Hx of Motion Sickness Social History Smoking Status: Never smoker Hx Alcohol Use: No Hx Substance Use: No Physical Exam Vital Signs Last Vital Signs Temp 37.2 C 04/30/25 14:22 Pulse 81 04/30/25 14:22 Resp 16 04/30/25 14:22 BP 128/78 04/30/25 14:22 Pulse Ox 100 04/30/25 14:22 O2 Del Method Room Air 04/30/25 14:22 Testing Laboratory Results 04/30/25 07:02 04/30/25 07:02 Urine Color Dark Yellow 04/25/25 12:50 Urine Appearance Clear (Clear) 04/25/25 12:50 Urine pH 7.5 (4.5-7.5) 04/25/25 12:50 Ur Specific [place] 1.032 (1.000-1.030) H 04/25/25 12:50 Urine Protein 2+ (Negative) H 04/25/25 12:50 Urine Glucose (UA) Negative (Negative) 04/25/25 12:50 Urine Ketones 1+ (Negative) H 04/25/25 12:50 Urine Nitrite Negative (Negative) 04/25/25 12:50 Ur Leukocyte Esterase 1+ (Negative) H 04/25/25 12:50 Urine WBC (Auto) >50 /hpf (0-5) H 04/25/25 12:50 Urine RBC (Auto) 11-20 /hpf (0-2) H 04/25/25 12:50 U Hyaline Cast (Auto) 0-2 /lpf (0-2) 04/25/25 12:50 U Epithel Cells (Auto) 0-2 /hpf (0-2) 04/25/25 12:50 Urine Bacteria (Auto) None Seen (None Seen) 04/25/25 12:50 Blood Type B Positive 04/25/25 12:40 Antibody Screen NEGATIVE 04/25/25 12:40 04/25/25 12:50 Urine Culture - Final Urine,Clean Catch No growth - less than 1,000 colonies/mL. Electrocardiogram Date: 04/19/25 Findings: + NSR @ (@ 70) Chest X-Ray Date: 04/25/25 Findings: + NAD
[2025-04-30] MEDS ORDERED: ATROPINE SULFATE 0.1 MG/ML 10ML SYR IV PRN (14:51)
--- NOTE | 2025-04-30 14:59 | Surgery Consultation ---
<Statement entered by Racquel William MD - 04/30/25 22:34> I saw and independently examined the patient and I agree w the assessment and plan of care. Patient with severe refractory UC, is ill, but hopefully can be started and respond to Humira soon. I did discuss w patient that sometimes urgent surgery is the safest option if he becomes critically ill/toxic megacolon/perforation/continues to be refractory, and it likely would be a 3 stage procedure. He understands, but also understandably wants to avoid surgery if possible. Will continue to follow. Date of Consultation April 30, 2025 Assessment & Plan (1) Ulcerative colitis: This is a 24y M with a PMH of ulcerative colitis diagnosed in 2023 who presents to the [facility] ED on 04/25/25 with complaints of pain and bloody stools. Apparently the patient was initially on Remicaid, but this was stopped in september of 2024 due to insurance issues. In the ER patient underwent a CT a/p that revealed mild progression of the diffuse proctocolitis compatible with the patient's clinical history of inflammatory bowel disease/ulcerative colitis. There is no bowel obstruction or pneumoperitoneum. He was subsequently admitted under medicine service with a GI consult obtained. He has been on IV steroids since admission. Planning on undergoing sigmoidoscopy with GI today. We have been consulted as patient continues to be symptomatic despite steroid treatment thus far. Today blood work shows WBC 23 (on steroids), Hbg 11.7, Cr 0.6. Vitals are stable without fevers. Abdomen is soft but with generalized tenderness to palpation. GI is planning on a flex sigmoidoscopy today. Plan is to see if we can get him started on Humira. We will see how patient fairs s/p flex sig, ongoing steriods, and initiation of humira as surgical intervention would likely require a multi- staged procedure. We will keep a close eye on him and follow along daily. Patient seen/examined with dr. william with colorectal surgery History of Present Illness Attending Physician: Christopher Dennis MD History of Present Illness This is a 24y M with a PMH of ulcerative colitis diagnosed in 2023 who presents to the [facility] ED on 04/25/25 with complaints of pain and bloody stools. Apparently the patient was initially on Remicaid, but this was stopped in march of 2025 due to insurance issues. In the ER patient underwent a CT a/p that revealed mild progression of the diffuse proctocolitis compatible with the patient's clinical history of inflammatory bowel disease/ulcerative colitis. There is no bowel obstruction or pneumoperitoneum. He was subsequently admitted under medicine service with a GI consult obtained. He has been on IV steroids since admission. Planning on undergoing sigmoidoscopy with GI today. We have been consulted as patient continues to be symptomatic despite steroid treatment thus far. Allergies Allergy/AdvReac Type Severity Reaction Status Date / Time No Known Allergies Allergy Verified 04/25/25 09:59 Home Medications Medication Instructions Recorded Confirmed Type budesonide 3 mg 9 mg (3 x 3 mg) PO DAILY 30 days 04/19/25 04/25/25 Rx capsule,delayed,extended release #90 ea mesalamine 1,000 mg rectal 1 g [place] HS 30 days #30 ea 04/19/25 04/25/25 Rx suppository adalimumab-aacf 40 mg/0.8 mL See Rx Instructions subcut 04/30/25 04/30/25 Rx subcutaneous pen kit .COMPLEX #4 ea (adalimumab-aacf(CF) pen Crohn's-[facility] Starter) Patient History Medical History Ulcerative colitis with rectal bleeding Surgical History No pertinent past surgical history Family History Mother Hypothyroidism due to Kirsten's thyroiditis Family/Other Diabetes cousin - type 1 Denies family history of Inflammatory bowel disease Social History Smoking Status: Never smoker Hx Alcohol Use: No Hx Substance Use: No Preferred Language: Occitan Communication Ability: Effective Seed Cleaner Required: No Beliefs That Will Affect Care: None marital status: Single Current Living Situation Comment: apartment current occupational status: student other: 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) Feels Safe at Home: Yes Assistive Devices: None Review of Systems Respiratory: no dyspnea Cardiovascular: no chest pain Gastrointestinal: + abdominal pain, + nausea and + blood i n stools; no vomiting Physical Exam Physical Exam: awake/alert Constitutional: pallor Respiratory: normal respiratory effort Gastrointestinal (Abdomen): Percussion/Palpation: + abdomen tender (generalized ttp) and abdomen soft Results & Data Vital Signs (Past 12 Hours) Vital Signs Temp Pulse Resp BP Pulse Ox O2 Del Method 04/30/25 14:22 99.0 F 81 16 128/78 100 Room Air 04/30/25 07:35 98.1 F 67 16 114/75 97 Room Air Diagnostic Findings ABDOMEN AND PELVIS CT WITH IV CONTRAST CT DOSE: 402.5 mGy.cm HISTORY: Acute generalized abdominal pain in a patient with history of ulcerative colitis abd pain, UC flare TECHNIQUE: Multiaxial CT images of the abdomen and pelvis were performed following the IV administration of 90 cc of Optiray, A dose lowering technique was utilized adhering to the principles of ALARA. COMPARISON STUDY: CT 04/19/2025 FINDINGS: The lung bases are clear. The liver, spleen, gallbladder, pancreas, and adrenal glands are within normal limits. No hydronephrosis. There are a few small cysts of the kidneys again noted. Urinary bladder wall thickening with partial distention. Unremarkable prostate. Aorta and IVC are within normal limits. No bowel obstruction. There is prominent circumferential wall thickening throughout the entire colon extending from the cecum through the rectum with adjacent inflammatory stranding subcentimeter pericolonic lymph nodes. Findings have mildly worsened from prior. Fluid-filled appendix measuring up to 8 mm, previously 6 monitors. Trace free pelvic fluid. No abscess, sinus tract or fistula. No acute fracture. IMPRESSION: 1. Mild progression of the diffuse proctocolitis compatible with the patient's clinical history of inflammatory bowel disease/ulcerative colitis. 2. Pericolonic lymph nodes are likely reactive. 3. No bowel obstruction or pneumoperitoneum. 4. Dilated fluid-filled appendix is likely secondary to the aforementioned colitis. ACT 112: Negative or not required by law. The above report was generated using voice recognition software. It may contain grammatical, syntax or spelling errors. Electronically signed by: Prieto Infante M.D. 04/25/2025 1:23 PM PG Care Time/CCT Total # of Minutes Spent Total Time Spent with Patient: Total time spent is greater than 50% in coordination of care (as documented) at patient's floor/unit and/or counseling patient: Coding Level of Care Code 77621 IN/OBS CONSULT LVL 3,45M Diagnoses Ulcerative colitis K51.90
--- NOTE | 2025-04-30 16:10 | Communication Note ---
Date of Service: April 30, 2025 Severe inflammatory changes starting in the rectum extending in a contiguous fashion mid sigmoid. Scope not advanced beyond this point due to some angu lation and the severe inflammatory changes. Biopsies done for CMV. Though no clear endoscopic evidence for this or C. difficile. Await biopsies. Start biological as soon as available.
--- NOTE | 2025-04-30 16:15 | GI REPORT ---
[facility] Patient: ORAL ROBERTS : 2000 Sex at : Male Age: 24 Years Procedure: Flexible Sigmoidoscopy Date: 04/30/2025 Attending Physician: Pavan Deleon MD Referring MD: Christopher Dennis Indications: - Ulcerative colitis, acute flare Medications: - Monitored Anesthesia Care Complications: - No immediate complications. Estimated Blood Loss: - Estimated blood loss was minimal. Procedure: - The adult colonoscope was introduced through the anus and advanced to the sigmoid colon. - The flexible sigmoidoscopy was accomplished without difficulty. - The patient tolerated the procedure well. - The quality of the bowel preparation was fair. Findings: - The digital rectal exam was normal. - Inflammation was found in a continuous and circumferential pattern from the rectum to the sigmoid colon. This was graded using the Ulcerative Colitis Endoscopic Index of Severity (UCEIS): complete obliteration of vascular pattern (2), mild luminal bleeding (2), deep ulcers (3). Impression: - Preparation of the colon was fair. - Pancolitis ulcerative colitis. - No specimens collected. - Severe UC. No endoscopic evidence for CMV or pseudomembranous colitis. Biopsies done for CMV and submitted. Start biological Humira soon as available Recommendation: Procedure Code(s): - 58264, Sigmoidoscopy, flexible; diagnostic, including collection of specimen(s) by brushing or washing, when performed (separate procedure) Diagnosis Code(s): - K51.00, Ulcerative (chronic) pancolitis without complications CPT(R) - 2023 copyright [employer]. All Rights Reserved. The CPT codes, CCI edits and ICD codes generated are intended as suggestions and were generated based on input data. These codes are preliminary and upon big data solutions architect review may be revised to meet current compliance and payer requirements. The provider is responsible for the final determination of appropriate codes, and modifiers. Pavan Deleon MD This document has been electronically signed. Note Initiated:04/30/2025 Note Completed:04/30/2025 4:14 PM \\[email or web address]\[email or web address]\Results\[id number]
[2025-04-30] MEDS: LIDOCAINE 2% 2 ML VIAL/AMP(20MG/ML) INFIL ONE (17:09)
[2025-04-30] MEDS: PROPOFOL IV EMULSION 10 MG/ML 20 ML VIAL IV ONE ×2 (17:09)
--- NOTE | 2025-04-30 17:14 | Communication Note ---
Date of Service: April 30, 2025 Phone call to Severo's mother. Discussed the situation at present which is steroid refractory severe ulcerative colitis. We are awaiting his QuantiFERON gold. He is hepatitis B immune. We are also waiting on insurance approval for Humira. Humira is denied but we have resubmitted for Humira biosimilar. Hopefully this will be approved and available tomorrow. I have had colorectal surgery to see him and the likelihood that he develops toxic megacolon. Flex sig today did not suggest C. difficile or CMV. But biopsies performed
[2025-05-01] MEDS: ONDANSETRON INJ 2 MG/ML 2 ML VIAL IV PRN (03:50)
--- NOTE | 2025-05-01 08:29 | Communication Note ---
Date of Service: May 01, 2025 Awaiting today's labs. Also waiting on approval for biosimilar for Humira. Even with approval today likely no drug till tomorrow. Patient has severe c olitis. 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 May need more than a single loading dose. Typically this is monitored by serial fecal calprotectin's. 2 to 3 days after his first dose if his calprotectin's are not decreasing or clinical improvement a second dose is given again this would require approval likely delay. This young gentleman with significant colitis may benefit from tertiary referral to an IBD center. Will discuss with primary service and pursue that today.
--- NOTE | 2025-05-01 08:51 | Billing Data ---
Date of Service April 30, 2025 Coding Level of Care Code 84249 SUB INP/OBS CARE
--- NOTE | 2025-05-01 08:51 | Gastroenterology Progress Note ---
Date of Service May 01, 2025 Assessment & Plan (1) Ulcerative colitis with rectal bleeding: Plan: 24 year old male w/ history of ulcerative colitis diagnosed around 2023 treated w/ Remicade but off therapy since 09/2024 admitted w/ ulcerative colitis flare de spite initiation of outpatient therapy CTAP w/ progression of the diffuse proctocolitis, stool PCR negative, c.diff negative, elevated fecal calprotectin at 3100 plan to restart therapy w/ humira. Colonoscopy w/ pancolitis - Attempt transfer to [facility] [place] - No response to IV steroids - Continue IV steroids at present dosing - Continue oral mesalamine at present dosing - Colorectal surgery consultation placed - Authorization for humira started 04/29 - Consent to treat signed 04/29 - Immune to Hep B - Follow PPD - Quant gold pending - Plan for SUBQ [id number] mg (day 1) then 80 mg (day 15) then 40 mg every other week beginning on day 29 - Risks and benefits were discussed including risk of infection and cancer - There is increased risk of developing serious infections that may lead to hospitalization or - There is risk of TB infection, including reactivation of latent TB. You should be closely monitored for the development of signs and symptoms of infection during and after treatment - Although rare, lymphoma and other malignancies, have been reported in children and adolescent patients treated with tumor necrosis factor (TNF) blockers - No live vaccinations - Yearly flu shot - Please discuss Flu, COVID-19, HPV, Shingrix, PPSV 23 and Hep B boosters with your primary care provider I spent a total of 40 minutes on the date of service in review of patient's record, and previously obtained information in person and appropriate medical visit, discussion and education of plan, with patient and/or caregiver, placing orders for tests/referral/procedures as medically necessary and documentation of pertinent clinical information in patient's medical records for their visit today. Thank you for allowing us to participate in the care of this patient. Please call with any acute changes, questions or concerns. Please see addendum below with additional recommendation from my supervising physician. Admission and Anticipated Discharge Date Admission Date: April 25, 2025 Supervising Physician Co-Signing Physician Notes Agree with above. Patient seen this p.m. His color actually appears better. He is in better spirits. He reluctantly states he feels he is maybe a little better. His white count is down to 16,000. He is still having 10+ bowel movements a day. Biopsies are pending. Appearance however his ulcerative colitis. I think CMV is improbable. He has heard from [facility] specialty pharmacy. We should have drug by tomorrow. Patient may benefit from transfer to a tertiary care center. See my note from earlier today. He is abdomen is flat scaphoid seems to be less tender than yesterday. Vital stable afebrile. Continue to monitor. Check a KUB tomorrow. I am available to facilitate transfer for to tertiary care center if required. Subjective Notes unchanged symptoms. Abd pain. Endorses at least 8 loose, bloody BMs since midnight. Review of Systems Review of Systems: All other findings negative except as noted in HPI. Physical Exam Constitutional: WD/WN, vitals as above Respiratory: normal respiratory effort, lungs clear to auscultation Cardiovascular: RRR, no murmur, no edema Gastrointestinal (Abdomen): Inspection/Auscultation: normal bowel sounds Percussion/Palpation: + abdomen tender and abdomen soft; no guarding and abdomen not rigid Skin: no rashes, warm and dry Results & Data Results & Data Vital Signs (Past 12 Hours) Vital Signs Temp Pulse Resp BP Pulse Ox O2 Del Method 05/01/25 08:40 97.9 F 71 18 112/70 99 Room Air 04/30/25 22:39 97.9 F 65 18 103/66 97 Room Air Laboratory Results 04/29/25 Range/Units 10:01 Hepatitis A IgM Ab NON-REACTIVE (NON-REACTIVE) Hep B Core IgM Ab NON-REACTIVE (NON-REACTIVE) TB Test (QFT) Gold Plus NEGATIVE (Negative) TB Test (QFT) Nil 0.043 IU/mL TB Test (QFT) Mitogen 10.000 IU/mL TB Test (QFT) Ag 1 0.048 IU/mL TB Test (QFT) Ag 2 0.046 IU/mL PG Care Time/CCT Total # of Minutes Spent Total Time Spent with Patient: Total time spent is greater than 50% in coordination of care (as documented) at patient's floor/unit and/or counseling patient: Coding Level of Care Code 49571 SUB INP/OBS CARE 2/35MIN Diagnoses Ulcerative colitis with rectal bleeding K51.911 Ulcerative colitis location: unspecified ulcerative colitis location (1) Ulcerative colitis with rectal bleeding Ulcerative colitis location: unspecified ulcerative colitis location Qualified Code(s): K51.911 - Ulcerative colitis, unspecified with rectal bleeding
[2025-05-01 09:08] LABS: Hematocrit (blood only) 31.6 % (42.0-52.0); Hemoglobin 10.7 g/dl (14.0-18.0); Mean Corpuscular Hemoglobin 28.8 pg (25.0-34.0); Mean Corpuscular Volume 85.2 fL (80.0-100.0); Platelet Count 443 K/uL (130-400); RDW Standard Deviation 38.1 fL (36.4-46.3); Red Blood Count 3.71 M/uL (4.70-6.10); White Blood Count 19.51 K/ul (4.8-10.8)
[2025-05-01 09:43] LABS: Alanine Aminotransferase 13.0 U/L (7-52); Albumin Globulin Ratio 0.8 (0.9-2); Albumin Level 2.6 gm/dl (3.4-5.0); Alkaline Phosphatase 76.0 U/L (34-104); Anion Gap 6.0 (3-11); Bilirubin,Total 0.3 mg/dl (0.2-1.0); Blood Urea Nitrogen 11.0 mg/dl (6-23); Calcium 8.2 mg/dl (8.6-10.3); Carbon Dioxide 27.0 mmol/L (21-32); Chloride 104.0 mmol/L (98-107); Creatinine Clr Calc Pharmacy 184.7 ml/min; Globulin 3.4 gm/dl (2.5-4.0); Glucose 93.0 mg/dl (70-99(Fasting)); Potassium 4.2 mmol/L (3.5-5.1); Sodium 137.0 mmol/L (136-145); Total Protein 6.0 gm/dl (6.0-8.3)
--- NOTE | 2025-05-01 10:31 | Communication Note ---
Date of Service: May 01, 2025 Hepatitis B immune. QuantiFERON gold negative. Can receive loading dose of Humira biosimilar once available.
--- NOTE | 2025-05-01 12:35 | Surgery Progress Note ---
<Statement entered by Racquel Rodriguez MD - 05/01/25 21:14> I independently saw the patient, and I agree w the assessment and plan of care. Date of Service May 01, 2025 Assessment & Plan (1) Ulcerative colitis: Plan: Patient here w/ a UC flair GI performed sigmoidoscope yesterday, please see their report started on clears, but would consider starting PPN while he is weak and likely having + GI losses and trouble absorbing hoping to avoid any surgical intervention GI working on trying to get approval for humira, would want to see if this works first before entertaining surgery as it would be a multi-staged procedure also patient from [place] so if he ultimately requires any surgical intervention he may want to consider being closer to home if needs it down the road Will follow, pt seen/examined with dr. rodriguez with colorectal surgery Admission and Anticipated Discharge Date Admission Date: April 25, 2025 Subjective Patient feels about the same. Weak. Crampy. + bloody stool. Physical Exam Physical Exam: awake/alert, no distress. lying in bed Gastrointestinal (Abdomen): Inspection/Auscultation: abdomen not distended Percussion/Palpation: + abdomen tender (generalized discomfort, seems a bit improved from yesterday) and abdomen soft Results & Data Vital Signs (Past 12 Hours) Vital Signs Temp Pulse Resp BP Pulse Ox O2 Del Method 05/01/25 08:40 97.9 F 71 18 112/70 99 Room Air PG Care Time/CCT Total # of Minutes Spent Total Time Spent with Patient: Total time spent is greater than 50% in coordination of care (as documented) at patient's floor/unit and/or counseling patient: Coding Level of Care Code 36514 SUB INP/OBS CARE 08/11MIN Diagnoses Ulcerative colitis K51.90
--- NOTE | 2025-05-01 17:30 | Hospitalist Progress Note ---
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 #uncontrolled/active ulcerative colitis - -had modestly improved in the first 1-2 days of the hospital stay, but now symptoms and signs are back to where they were at time of admission -CRP has not improved with high-dose IV steroids since admission (was 11, now 12 today compared to 2.5 04/19) -severe disease on CT scan with miller-colitis -infectious work-up -- stool Biofire, stool C diff -- all negative -repeated a C diff today - again negative -GI consult appreciated -advised solumedrol 40mg IV BID - continue such, no change in dose today -hold budesonide PO -resume mesalamine 400mg BID -defer additional Rx to GI: Recommend restarting biologic therapy with Humira - insurance denied -Similar biologic medication sent for authorization, approval information by 9AM tomorrow; medication will be shipped to home and brought in with pharmacy approval prior to inpatient use -Flex sigmoid scope procedure completed and studies pending -GI recommends potential transfer to [place] due to UC refractory to steroids and potential need for salvage therapy -resumed IV fluids -downgraded diet to NPO for bowel rest, PPN can be considered if diet cannot be advanced post scope -Pain control: IV Tylenol 1g Q8H, IV Toradol 30mg Q6H, IV Pepcid. Consider opioid therapy if pain is refractory to management #severe protein calorie malnutrition with weight loss - -2nd to uncontrolled ulcerative colitis -Fe studies suggest Fe def; he reports having had IV Fe in the past; consider IV venofer while here -B12, folate wnl -added MVI -replace low vit D; ergocalciferol therapy -appreciate dietary consultation and recs for supplements #cough - -lung exam wnl -O2 sats wnl -2-view cxr wnl -likely upper respiratory in etiology -has not complained of this in several days -resolved #anemia - -2nd to blood loss last 2-3 weeks from UC -Basline hgb: 15, current: 10.9 -consider IV iron #leukocytosis - -likely 2nd to UC flare itself and steroids -stool BioFire, stool C diff negative -trend CBC, improving #DVT Proph - -defer on chemical means while having active BRBPR #abnormal appendix on CT scan - -likely due to inflammation from his UC -doubt acute appendicitis de lelia -can follow #vitamin D deficiency - -undetectable level -2nd to poor dietary intake, malabsorption from UC, etc. -ergocalciferol 74790 units qweekly x 8 weeks #fatigue/weakness - -2nd to UC flare, anemia, etc. -checked COVID/flu/RSV to ensure no other concomitant process -- these returned negative Admission and Anticipated Discharge Date Admission Date: April 25, 2025 Supervising Physician Co-Signing Physician Notes I personally examined the patient and verified all churchill points of history and exam, discussed case, and agree with decision making with Dr Elizabeth PGY 2 Patient with an ulcerative colitis flair. Patient is not responsive to steroids with limited improvement over the past few days. Patient conues to have diarrhea. Trying to obtain Humira for the patient, working on getting insurance-pharmacy approval. GI is concerned that patient may need to be transferred to IBD center. Will have group discussion in AM with transfer center and GI tomorrow in AM. Otherwise as above, pending placement. Subjective Patient reports feeling ok while on liquid diet this AM. This is an improvement from previous days when he was in more severe pain. However, patient does report that worst of symptoms typically do come on between 10pm and 5am while having BMs. patient remains afebrile and hemodynamically stable. Physical Exam Physical Exam: General: patient resting comfortably, NAD, non-toxic in appearance, answers questions appropriately. Skin: warm, dry, intact HEENT: NC/AT, anicteric sclera, conjunctiva without injection, moist mucus membranes. Heart: +S1/S2, regular, no m/r/g Lungs: equal air entry bilaterally, no rales/rhonchi/wheezes Abd: +BS, soft, ND, Tenderness present as band along lower abdomen with radiation to his RUQ and LUQ. Ext: warm, no clubbing/cyanosis or edema Neuro: nonfocal, speech intact, no facial droop, moving all extremities. Results & Data Results & Data Vital Signs (Past 12 Hours) Vital Signs Temp Pulse Resp BP Pulse Ox O2 Del Method 05/01/25 08:40 36.6 C 71 18 112/70 99 Room Air Resident Activity Tracking Resident Involvement: Resident Care Provided Care Provided: Adult Hospital Medicine
--- NOTE | 2025-05-01 19:21 | XRay Report ---
Abdominal radiograph, one view History: Abdominal pain Comparison: Findings/impression: Single AP view of the abdomen performed. The bowel gas pattern appears nonobstructive. Thumbprinting of the transverse colonic wall, suggestive of edema, which may be seen with colitis. There is otherwise no abnormal distention. Mild gas filling of the ascending and transverse colon seen. There is no visualized distention of the descending colon. No pneumatosis or portal venous gas. No abnormal calcifications project over the abdomen. No acute abnormality of the bony structures. Electronically signed by Richard Ambrosio 05-01-2025 7:21 PM
[2025-05-02 08:03] LABS: Hematocrit (blood only) 32.1 % (42.0-52.0); Hemoglobin 11.2 g/dl (14.0-18.0); Mean Corpuscular Hemoglobin 29.6 pg (25.0-34.0); Mean Corpuscular Volume 84.7 fL (80.0-100.0); Platelet Count 453 K/uL (130-400); RDW Standard Deviation 36.7 fL (36.4-46.3); Red Blood Count 3.79 M/uL (4.70-6.10); White Blood Count 17.86 K/ul (4.8-10.8)
[2025-05-02 08:22] LABS: Alanine Aminotransferase 13.0 U/L (7-52); Albumin Globulin Ratio 0.8 (0.9-2); Albumin Level 2.7 gm/dl (3.4-5.0); Alkaline Phosphatase 81.0 U/L (34-104); Anion Gap 5.0 (3-11); Bilirubin,Total 0.4 mg/dl (0.2-1.0); Blood Urea Nitrogen 11.0 mg/dl (6-23); Calcium 8.3 mg/dl (8.6-10.3); Carbon Dioxide 29.0 mmol/L (21-32); Chloride 103.0 mmol/L (98-107); Creatinine Clr Calc Pharmacy 184.7 ml/min; Globulin 3.5 gm/dl (2.5-4.0); Glucose 119.0 mg/dl (70-99(Fasting)); Potassium 4.4 mmol/L (3.5-5.1); Sodium 137.0 mmol/L (136-145); Total Protein 6.2 gm/dl (6.0-8.3)
[2025-05-02 08:33] LABS: Dohle Bodies 1+; Immature Granulocytes # (auto) 0.70 K/uL (0.01-0.20); Immature Granulocytes % (auto) 3.9 %; Polychromasia 1+
--- NOTE | 2025-05-02 10:18 | Gastroenterology Progress Note ---
Date of Service May 02, 2025 Assessment & Plan (1) Ulcerative colitis with rectal bleeding: Plan: 24 year old male w/ history of ulcerative colitis diagnosed around 2023 treated w/ Remicade but off therapy since 09/2024 admitted w/ ulcerative colitis flare de spite initiation of outpatient therapy CTAP w/ progression of the diffuse proctocolitis, stool PCR negative, c.diff negative, elevated fecal calprotectin at 3100 plan to restart therapy w/ humira. Colonoscopy w/ pancolitis, biopsies pending - No response to IV steroids - Continue IV steroids at present dosing - Continue oral mesalamine at present dosing - Colorectal surgery consultation placed - Authorization for humira started 04/29 - Consent to treat signed 04/29 - Immune to Hep B - PPD negative - Quant gold negative - Plan for SUBQ mg (day 1) then 80 mg (day 15) then 40 mg every other week beginning on day 29 - Risks and benefits were discussed including risk of infection and cancer - There is increased risk of developing serious infections that may lead to hospitalization or - There is risk of TB infection, including reactivation of latent TB. You should be closely monitored for the development of signs and symptoms of infection during and after treatment - Although rare, lymphoma and other malignancies, have been reported in children and adolescent patients treated with tumor necrosis factor (TNF) blockers - No live vaccinations - Yearly flu shot - Please discuss Flu, COVID-19, HPV, Shingrix, PPSV 23 and Hep B boosters with your primary care provider I spent a total of 55 minutes on the date of service in review of patient's record, and previously obtained information in person and appropriate medical visit, discussion and education of plan, with patient and/or caregiver, placing orders for tests/referral/procedures as medically necessary and documentation of pertinent clinical information in patient's medical records for their visit today. Thank you for allowing us to participate in the care of this patient. Please call with any acute changes, questions or concerns. Please see addendum below with additional recommendation from my supervising physician. Admission and Anticipated Discharge Date Admission Date: April 25, 2025 Supervising Physician Co-Signing Physician Notes Clinically improved decreased number of bowel movements decreased blood. Patient's p.o. intake calories quite low. I think he has been avoiding p.o. intake as concerns will aggravate his colitis. I would push Ensure plus boost Sustacal. I told him he needs to drink minimum of 2 to 3 cans of this per day. Patient will attempt. Will follow-up. Should get his first dose of Humira tomorrow. Subjective Suggests some improvement. Notes he has had two BMs overnight and two BMs this AM. Stools are still liquid, bloody w/ mucous. He tells me [facility] specialty pharmacy told him yesterday he was to receive Humira within 24-48 hours. I advised him to contact the pharmacy again today for updated shipment information. KUB 05/01:The bowel gas pattern appears nonobstructive. Thumbprinting of the transverse colonic wall, suggestive of edema, which may be seen with colitis. There is otherwise no abnormal distention. Mild gas filling of the ascending and transverse colon seen. There is no visualized distention of the descending colon. Path pending Review of Systems Review of Systems: All other findings negative except as noted in HPI. Physical Exam Constitutional: WD/WN, vitals as above Respiratory: normal respiratory effort, lungs clear to auscultation Cardiovascular: RRR, no murmur, no edema Gastrointestinal (Abdomen): normal bowel sounds, soft, nontender, no hepatosplenomegaly Skin: no rashes, warm and dry Results & Data Results & Data Vital Signs (Past 12 Hours) Vital Signs Temp Pulse Resp BP Pulse Ox O2 Del Method 05/02/25 08:00 97.7 F 66 16 115/80 97 Room Air 05/01/25 23:29 97.5 F L 64 16 139/87 99 Room Air Laboratory Results 05/02/25 Range/Units 07:35 WBC 17.86 H (4.8-10.8) K/ul RBC 3.79 L (4.70-6.10) M/uL Hgb 11.2 L (14.0-18.0) g/dl Hct 32.1 L (42.0-52.0) % MCV 84.7 (80.0-100.0) fL MCH 29.6 (25.0-34.0) pg MCHC 34.9 (32.0-36.0) g/dL RDW Std Deviation 36.7 (36.4-46.3) fL RDW Coeff of Chery 12.0 (11.5-14.5) % Plt Count 453 H (130-400) K/uL MPV 9.0 L (9.4-12.4) fL Immature Gran % (Auto) 3.9 % Neut % (Auto) 77.4 % Lymph % (Auto) 10.8 % Mclean % (Auto) 7.4 % Eos % (Auto) 0.1 % Baso % (Auto) 0.4 % Neut # (Auto) 13.83 H (1.40-6.50) K/uL Lymph # (Auto) 1.92 (1.20-3.40) K/uL Mclean # (Auto) 1.33 H (0.11-0.59) K/uL Eos # (Auto) 0.01 (0.00-0.50) K/uL Baso # (Auto) 0.07 (0.00-0.20) K/uL Immature Gran # (Auto) 0.70 H (0.01-0.20) K/uL Absolute Nucleated RBC 0.03 (0.00-0.12) K/uL Nucleated RBC % (auto) 0.2 % Dohle Bodies 1+ Polychromasia 1+ Sodium 137 (136-145) mmol/L Potassium 4.4 (3.5-5.1) mmol/L Chloride 103 (98-107) mmol/L Carbon Dioxide 29 (21-32) mmol/L Anion Gap 5 (3-11) BUN 11 (6-23) mg/dl Creatinine 0.49 L (0.6-1.4) mg/dl Est Cr Clr Drug Dosing 184.7 ml/min eGFR 147.88 BUN/Creatinine Ratio 22.4 H (10-20) Glucose 119 H (70-99(Fasting)) mg/dl Calcium 8.3 L (8.6-10.3) mg/dl Total Bilirubin 0.4 (0.2-1.0) mg/dl AST 11 L (13-39) U/L ALT 13 (7-52) U/L Alkaline Phosphatase 81 (34-104) U/L C-Reactive Protein 8.81 H (0-0.5) mg/dl Total Protein 6.2 (6.0-8.3) gm/dl Albumin 2.7 L (3.4-5.0) gm/dl Globulin 3.5 (2.5-4.0) gm/dl Albumin/Globulin Ratio 0.8 L (0.9-2) PG Care Time/CCT Total # of Minutes Spent Total Time Spent with Patient: Total time spent is greater than 50% in coordination of care (as documented) at patient's floor/unit and/or counseling patient: Coding Level of Care Code 94677 SUB INP/OBS CARE 350MIN Diagnoses Ulcerative colitis with rectal bleeding K51.911 Ulcerative colitis location: unspecified ulcerative colitis location (1) Ulcerative colitis with rectal bleeding Ulcerative colitis location: unspecified ulcerative colitis location Qualified Code(s): K51.911 - Ulcerative colitis, unspecified with rectal bleeding
--- NOTE | 2025-05-02 12:46 | Surgery Progress Note ---
Date of Service May 02, 2025 Assessment & Plan (1) Ulcerative colitis: Plan UC flare, appears to be improving somewhat today. No role currently for urgent/emergent surgical intervention. Recommend continued treatment and hopefully start humira today or tomorrow. Admission and Anticipated Discharge Date Admission Date: April 25, 2025 Subjective Patient reports feeling slightly improved--less loose bowel movements overnight. Suggests some improvement. Notes he has had two BMs overnight and two BMs this AM. Stools are still liquid, bloody w/ mucous. Does have some nausea when taking large amount of meds. Hoping to start humira soon KUB 05/01:The bowel gas pattern appears nonobstructive. Thumbprinting of the transverse colonic wall, suggestive of edema, which may be seen with colitis. There is otherwise no abnormal distention. Mild gas filling of the ascending and transverse colon seen. There is no visualized distention of the descending colon. Path pending Physical Exam Constitutional: WD/WN, vitals as above Respiratory: normal effort Gastrointestinal (Abdomen): soft, non distended, tender to palpation diffusely without peritoneal signs Results & Data Vital Signs (Past 12 Hours) Vital Signs Temp Pulse Resp BP Pulse Ox O2 Del Method 05/02/25 08:00 36.5 C 66 16 115/80 97 Room Air PG Care Time/CCT Total # of Minutes Spent Total Time Spent with Patient: Total time spent is greater than 50% in coordination of care (as documented) at patient's floor/unit and/or counseling patient: Coding Level of Care Code 51784 SUB INP/OBS CARE 08/11MIN Diagnoses Ulcerative pancolitis without complication K51.00 Ulcerative colitis location: ulcerative pancolitis Digestive disease complication type: without complication (1) Ulcerative colitis Ulcerative colitis location: ulcerative pancolitis Digestive disease complication type: without complication Qualified Code(s): K51.00 - Ulcerative (chronic) pancolitis without complications
--- NOTE | 2025-05-02 13:43 | Hospitalist Progress Note ---
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 #uncontrolled/active ulcerative colitis - -had modestly improved in the first 1-2 days of the hospital stay, but now symptoms and signs are back to where they were at time of admission -CRP has not improved with high-dose IV steroids since admission (was 11, now 12 today compared to 2.5 04/19) -severe disease on CT scan with miller-colitis -infectious work-up -- stool Biofire, stool C diff -- all negative -repeated a C diff today - again negative -GI consult appreciated -advised solumedrol 40mg IV BID - continue such, no change in dose today -hold budesonide PO -resume mesalamine 400mg BID -defer additional Rx to GI: Recommend restarting biologic therapy with Humira - insurance denied -Similar biologic medication sent for authorization, approval information by 9AM tomorrow; medication will be shipped to home and brought in with pharmacy approval prior to inpatient use -Flex sigmoid scope procedure completed and studies pending -GI recommends potential transfer to [place] due to UC refractory to steroids and potential need for salvage therapy -resumed IV fluids -downgraded diet to NPO for bowel rest, PPN can be considered if diet cannot be advanced post scope -Pain control: IV Tylenol 1g Q8H, IV Toradol 30mg Q6H, IV Pepcid. Consider opioid therapy if pain is refractory to management -[facility] pharmacy contacted as adalimumab medication was not authorized by insurance, prescription transferred to [facility] and medication will be filled and shipped to home, and brought inpatient prior to use #severe protein calorie malnutrition with weight loss - -2nd to uncontrolled ulcerative colitis -Fe studies suggest Fe def; he reports having had IV Fe in the past; consider IV venofer while here -B12, folate wnl -added MVI -replace low vit D; ergocalciferol therapy -Boost protein shake supplementation started #cough - -lung exam wnl -O2 sats wnl -2-view cxr wnl -likely upper respiratory in etiology -has not complained of this in several days -resolved #anemia - -2nd to blood loss last 2-3 weeks from UC -Basline hgb: 15, current: 10.9 -consider IV iron #leukocytosis - -likely 2nd to UC flare itself and steroids -stool BioFire, stool C diff negative -trend CBC, improving #DVT Proph - -defer on chemical means while having active BRBPR #abnormal appendix on CT scan - -likely due to inflammation from his UC -doubt acute appendicitis de lelia -can follow #vitamin D deficiency - -undetectable level -2nd to poor dietary intake, malabsorption from UC, etc. -ergocalciferol 75664 units qweekly x 8 weeks #fatigue/weakness - -2nd to UC flare, anemia, etc. -checked COVID/flu/RSV to ensure no other concomitant process -- these returned negative Admission and Anticipated Discharge Date Admission Date: April 25, 2025 Supervising Physician Co-Signing Physician Notes I personally examined the patient and verified all churchill points of history and exam, discussed case, and agree with decision making with Dr Elizabeth PGY 2 Patient with an ulcerative colitis flair. Patient is not responsive to steroids with limited improvement over the past few days. Patient continues to have bloody diarrhea but better twith 4 BMs vs 12 the day prior. Trying to obtain Humira for the patient, working on getting insurance-pharmacy approval. Will bring in tomorrow. GI is concerned that patient may need to be transferred to IBD center. After group discussion will hold off transfer until mother comes back tomorrow However if patient continues to improve, then patient may ultimately not need transfer.. Otherwise as above, pending placement. Subjective Patient reports still feeling abdominal pain with 2 bloody BMs overnight from 12-7AM and 2 this AM from 7-9AM improved from 10-12 bloody BMs over the past days. Patient does note that pain has improved as majority of pain occurs during BMs and shortly after. Does note that his stomach typically has been getting upset with larger meals. Patient remains afebrile and hemodynamicaly stable. Physical Exam Physical Exam: General: patient resting comfortably, NAD, non-toxic in appearance, answers questions appropriately. Skin: warm, dry, intact HEENT: NC/AT, anicteric sclera, conjunctiva without injection, moist mucus membranes. Heart: +S1/S2, regular, no m/r/g Lungs: equal air entry bilaterally, no rales/rhonchi/wheezes Abd: +BS, soft, ND, Tenderness present as band along lower abdomen with radiation to his RUQ and LUQ. Ext: warm, no clubbing/cyanosis or edema Neuro: nonfocal, speech intact, no facial droop, moving all extremities. Results & Data Results & Data Vital Signs (Past 12 Hours) Vital Signs Temp Pulse Resp BP Pulse Ox O2 Del Method 05/02/25 08:00 36.5 C 66 16 115/80 97 Room Air Resident Activity Tracking Resident Involvement: Resident Care Provided Care Provided: Adult Hospital Medicine
[2025-05-03 07:09] LABS: Hematocrit (blood only) 31.2 % (42.0-52.0); Hemoglobin 11.2 g/dl (14.0-18.0); Mean Corpuscular Hemoglobin 30.0 pg (25.0-34.0); Mean Corpuscular Volume 83.6 fL (80.0-100.0); Platelet Count 491 K/uL (130-400); RDW Standard Deviation 36.5 fL (36.4-46.3); Red Blood Count 3.73 M/uL (4.70-6.10); White Blood Count 24.60 K/ul (4.8-10.8)
[2025-05-03 07:47] LABS: Anion Gap 7.0 (3-11); Blood Urea Nitrogen 14.0 mg/dl (6-23); Calcium 8.3 mg/dl (8.6-10.3); Carbon Dioxide 26.0 mmol/L (21-32); Chloride 102.0 mmol/L (98-107); Creatinine Clr Calc Pharmacy 215.5 ml/min; Glucose 127.0 mg/dl (70-99(Fasting)); Potassium 4.3 mmol/L (3.5-5.1); Sodium 135.0 mmol/L (136-145)
[2025-05-03 08:07] LABS: Immature Granulocytes # (auto) 0.47 K/uL (0.01-0.20); Immature Granulocytes % (auto) 1.9 %
--- NOTE | 2025-05-03 08:51 | Gastroenterology Progress Note ---
Date of Service May 03, 2025 Assessment & Plan (1) Ulcerative colitis with rectal bleeding: Plan: 24 year old male w/ history of ulcerative colitis diagnosed around 2023 treated w/ Remicade but off therapy since 09/2024 admitted w/ ulcerative colitis flare de spite initiation of outpatient therapy CTAP w/ progression of the diffuse proctocolitis, stool PCR negative, c.diff negative, elevated fecal calprotectin at 3100 plan to restart therapy w/ humira. Colonoscopy w/ pancolitis, biopsies show active chronic colitis with ulceration, crypt abscesses, and architectural distortion, negative for CMV and dysplasia - Plan to initiate Humira today - Consent to treat signed 04/29 - Immune to Hep B - PPD negative - Quant gold negative - Plan for SUBQ mg (day 1) then 80 mg (day 15) then 40 mg every other week beginning on day 29 - Risks and benefits were discussed including risk of infection and cancer - There is increased risk of developing serious infections that may lead to hospitalization or - There is risk of TB infection, including reactivation of latent TB. You should be closely monitored for the development of signs and symptoms of infection during and after treatment - Although rare, lymphoma and other malignancies, have been reported in children and adolescent patients treated with tumor necrosis factor (TNF) blockers - No live vaccinations - Yearly flu shot - Please discuss Flu, COVID-19, HPV, Shingrix, PPSV 23 and Hep B boosters with your primary care provider - Continue IV steroids at present dosing - Continue oral mesalamine at present dosing - Continue with oral intake, boost/ensure encouraged I spent a total of 40 minutes on the date of service in review of patient's record, and previously obtained information in person and appropriate medical visit, discussion and education of plan, with patient and/or caregiver, placing orders for tests/referral/procedures as medically necessary and documentation of pertinent clinical information in patient's medical records for their visit today. Thank you for allowing us to participate in the care of this patient. Please call with any acute changes, questions or concerns. Please see addendum below with additional recommendation from my supervising physician. Admission and Anticipated Discharge Date Admission Date: April 25, 2025 Supervising Physician Co-Signing Physician Notes Examined at the bedside. Mother present. Reviewed management to present. Patient received 160 mg of Humira today. Appears to have another 80 mg available in pharmacy. I would evaluate a dose over the next 48 to 72 hours. Recheck a fecal calprotectin on Tuesday. If he is not improving I would redosed him that 80 mg sooner rather than later. Patient has significant protein-losing enteropathy and may leak Humira drug across the bowel wall. He seems to be tolerating p.o. Interestingly he states he is noticing some increased bowel frequency which he attributes to eating. However he states it is very green and nonbloody. Should recheck C. difficile at this time. Abdomen benign. White count up slightly. Again should recheck C. difficile. Check KUB tomorrow. Check labs tomorrow. Dr. SORENSON, GI locum covering over weekend will be following Subjective Anticipating Humira delivery today. Biopsies w/ active chronic colitis with ulceration, crypt abscesses, and architectural distortion, negative for CMV and dysplasia. Notes that blood in stool has resolved overnight. He did have increased urgency/frequency w/ dietary advancement. No fever, chills, CP, SOB. Colonoscopy 2024: Severe UC. No endoscopic evidence for CMV or pseudomembrano us colitis. Biopsies done for CMV and submitted. Start biological Humira soon as available Pathology 2024: Colon, sigmoid, biopsy:- Active chronic colitis with ulceration, crypt abscesses, and architectural distortion- Negative for CMV by immunostain Negative for dysplasia Review of Systems Review of Systems: All other findings negative except as noted in HPI. Physical Exam Constitutional: WD/WN, vitals as above Respiratory: normal respiratory effort, lungs clear to auscultation Cardiovascular: RRR, no murmur, no edema Gastrointestinal (Abdomen): Inspection/Auscultation: abdomen normal to inspection and normal bowel sounds Percussion/Palpation: + abdomen tender and abdomen soft; no guarding and abdomen not rigid Skin: no rashes, warm and dry Results & Data Results & Data Vital Signs (Past 12 Hours) Vital Signs Temp Pulse Resp BP Pulse Ox O2 Del Method 05/03/25 07:15 97.9 F 68 16 118/74 98 Room Air 05/02/25 22:34 98.1 F 63 14 118/82 99 Room Air Laboratory Results 05/03/25 05/02/25 Range/Units 06:19 23:51 WBC 24.60 H (4.8-10.8) K/ul RBC 3.73 L (4.70-6.10) M/uL Hgb 11.2 L (14.0-18.0) g/dl Hct 31.2 L (42.0-52.0) % MCV 83.6 (80.0-100.0) fL MCH 30.0 (25.0-34.0) pg MCHC 35.9 (32.0-36.0) g/dL RDW Std Deviation 36.5 (36.4-46.3) fL RDW Coeff of Chery 11.9 (11.5-14.5) % Plt Count 491 H (130-400) K/uL MPV 9.0 L (9.4-12.4) fL Immature Gran % (Auto) 1.9 % Neut % (Auto) 83.4 % Lymph % (Auto) 9.1 % [place] % (Auto) 5.3 % Eos % (Auto) 0.1 % Baso % (Auto) 0.2 % Neut # (Auto) 20.51 H (1.40-6.50) K/uL Lymph # (Auto) 2.24 (1.20-3.40) K/uL [place] # (Auto) 1.31 H (0.11-0.59) K/uL Eos # (Auto) 0.02 (0.00-0.50) K/uL Baso # (Auto) 0.05 (0.00-0.20) K/uL Immature Gran # (Auto) 0.47 H (0.01-0.20) K/uL Sodium 135 L (136-145) mmol/L Potassium 4.3 (3.5-5.1) mmol/L Chloride 102 (98-107) mmol/L Carbon Dioxide 26 (21-32) mmol/L Anion Gap 7 (3-11) BUN 14 (6-23) mg/dl Creatinine 0.42 L (0.6-1.4) mg/dl Est Cr Clr Drug Dosing 215.5 ml/min eGFR 154.93 BUN/Creatinine Ratio 33.3 H (10-20) Glucose 127 H (70-99(Fasting)) mg/dl Calcium 8.3 L (8.6-10.3) mg/dl Stool Calprotectin Pending PG Care Time/CCT Total # of Minutes Spent Total Time Spent with Patient: Total time spent is greater than 50% in coordination of care (as documented) at patient's floor/unit and/or counseling patient: Coding Level of Care Code 19450 SUB INP/OBS CARE 2MIN Diagnoses Ulcerative colitis with rectal bleeding K51.911 Ulcerative colitis location: unspecified ulcerative colitis location (1) Ulcerative colitis with rectal bleeding Ulcerative colitis location: unspecified ulcerative colitis location Qualified Code(s): K51.911 - Ulcerative colitis, unspecified with rectal bleeding
--- NOTE | 2025-05-03 13:47 | Surgery Progress Note ---
Date of Service May 03, 2025 Assessment & Plan (1) Ulcerative colitis: Plan: Patient is a 24-year-old male with severe ulcerative colitis exacerbation, he appears to be clinically improving. He is on IV steroids send his white blood cell count is elevated but I believe it is due to the lack. He has hopefully going to start Humira today. No role for any acute or urgent surgical intervention. Will sign off for now, please reconsult if needed. Patient could follow-up with me as an outpatient as well. Admission and Anticipated Discharge Date Admission Date: April 25, 2025 Subjective Patient reports feeling improved today, has not had bloody bowel movements just multiple bowel movements. He feels like he has more energy. He is hoping to start Humira today. His family is visiting him from [place] and [place]. He seems in better spirits. Results & Data Vital Signs (Past 12 Hours) Vital Signs Temp Pulse Resp BP Pulse Ox O2 Del Method 05/03/25 07:15 36.6 C 68 16 118/74 98 Room Air PG Care Time/CCT Total # of Minutes Spent Total Time Spent with Patient: Total time spent is greater than 50% in coordination of care (as documented) at patient's floor/unit and/or counseling patient: Coding Level of Care Code 19161 SUB INP/OBS CARE 08/11MIN Diagnoses Ulcerative pancolitis without complication K51.00 Ulcerative colitis location: ulcerative pancolitis Digestive disease complication type: without complication (1) Ulcerative colitis Ulcerative colitis location: ulcerative pancolitis Digestive disease complication type: without complication Qualified Code(s): K51.00 - Ulcerative (chronic) pancolitis without complications
--- NOTE | 2025-05-03 13:47 | Hospitalist Progress Note ---
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 #uncontrolled/active ulcerative colitis - -had modestly improved in the first 1-2 days of the hospital stay, but now symptoms and signs are back to where they were at time of admission -CRP has not improved with high-dose IV steroids since admission (was 11, now 12 today compared to 2.5 04/19) -severe disease on CT scan with miller-colitis -infectious work-up -- stool Biofire, stool C diff -- all negative -repeated a C diff today - again negative -GI consult appreciated -advised solumedrol 40mg IV BID - continue such, no change in dose today -hold budesonide PO -resume mesalamine 400mg BID -defer additional Rx to GI: Recommend restarting biologic therapy with Humira - insurance denied -Similar biologic medication sent for authorization, approval information by 9AM tomorrow; medication will be shipped to home and brought in with pharmacy approval prior to inpatient use -Flex sigmoid scope procedure completed and studies pending -GI recommends potential transfer to [facility] due to UC refractory to steroids and potential need for salvage therapy -resumed IV fluids -downgraded diet to NPO for bowel rest, PPN can be considered if diet cannot be advanced post scope -Pain control: IV Tylenol 1g Q8H, IV Toradol 30mg Q6H, IV Pepcid. Consider opioid therapy if pain is refractory to management -[facility] pharmacy contacted as adalimumab medication was not authorized by insurance, prescription transferred to [facility] and medication will be filled and shipped to home, and brought inpatient prior to use - Humira started 05/03 with modest improvement in bloody BMs for past 72 hours, and without bloody BMs for 24 hours. - If condition continues to improve consider outpatient GI f/u with [facility] center s/p d/c #severe protein calorie malnutrition with weight loss - -2nd to uncontrolled ulcerative colitis -Fe studies suggest Fe def; he reports having had IV Fe in the past; consider IV venofer while here -B12, folate wnl -added MVI -replace low vit D; ergocalciferol therapy -Boost protein shake supplementation started #cough - -lung exam wnl -O2 sats wnl -2-view cxr wnl -likely upper respiratory in etiology -has not complained of this in several days -resolved #anemia - -2nd to blood loss last 2-3 weeks from UC -Basline hgb: 15, current: 10.9 -consider IV iron #leukocytosis - -likely 2nd to UC flare itself and steroids -stool BioFire, stool C diff negative -trend CBC, improving #DVT Proph - -defer on chemical means while having active BRBPR #abnormal appendix on CT scan - -likely due to inflammation from his UC -doubt acute appendicitis de lelia -can follow #vitamin D deficiency - -undetectable level -2nd to poor dietary intake, malabsorption from UC, etc. -ergocalciferol 40836 units qweekly x 8 weeks #fatigue/weakness - -2nd to UC flare, anemia, etc. -checked COVID/flu/RSV to ensure no other concomitant process -- these returned negative Admission and Anticipated Discharge Date Admission Date: April 25, 2025 Supervising Physician Co-Signing Physician Notes I personally examined the patient and verified all churchill points of history and exam, discussed case, and agree with decision making with Dr Elizabeth PGY 2 Patient with an ulcerative colitis flair. Patient was not responsive to steroids initially but has turned the corner Patient denies any bloody diarrhea today 05/03. First dose of humira will be given today. Given his clinical improvement, will hold off transfer to [facility]. Patient's diet has slowly improved, and protein intake as well. WIll monitor his albumin and clinical improvement. However if patient continues to improve, then patient may ultimately not need transfer.. Otherwise as above, pending placement. Subjective Patient is seen resting comfortably this AM. Reports that he had 8-10 BMs overnight, however he reports that these were the first non-bloody BMs but were liquid in consistency and green with mucous. Patient also notes relief of pain with BMs and feels ready to advance to a solid food diet. Patient is excited to start Humira therapy today, and notes that his mom will be coming in later. Patient remains afebrile and hemodynamically stable. Physical Exam Physical Exam: General: patient resting comfortably, NAD, non-toxic in appearance, answers questions appropriately. Skin: warm, dry, intact HEENT: NC/AT, anicteric sclera, conjunctiva without injection, moist mucus membranes. Heart: +S1/S2, regular, no m/r/g Lungs: equal air entry bilaterally, no rales/rhonchi/wheezes Abd: +BS, soft, ND, Tenderness present as band along lower abdomen with radiation to lower back. Resolution of upper abdominal tenderness on light and deep palpation. . Ext: warm, no clubbing/cyanosis or edema Neuro: nonfocal, speech intact, no facial droop, moving all extremities. Results & Data Results & Data Vital Signs (Past 12 Hours) Vital Signs Temp Pulse Resp BP Pulse Ox O2 Del Method 05/03/25 07:15 36.6 C 68 16 118/74 98 Room Air Resident Activity Tracking Resident Involvement: Resident Care Provided Care Provided: Adult Hospital Medicine
[2025-05-03] MEDS ORDERED: ADALIMUMAB 40 MG/0.8 ML SYR SQ SCH (16:00)
[2025-05-03] MEDS: ADALIMUMAB 40 MG/0.8 ML SYR SQ SCH (16:33)
[2025-05-03] MEDS: MELATONIN 3 MG TAB PO PRN (21:09)
[2025-05-04 08:05] LABS: Hematocrit (blood only) 31.6 % (42.0-52.0); Hemoglobin 11.2 g/dl (14.0-18.0); Mean Corpuscular Hemoglobin 29.8 pg (25.0-34.0); Mean Corpuscular Volume 84.0 fL (80.0-100.0); Platelet Count 490 K/uL (130-400); RDW Standard Deviation 36.8 fL (36.4-46.3); Red Blood Count 3.76 M/uL (4.70-6.10); White Blood Count 23.90 K/ul (4.8-10.8)
[2025-05-04 08:29] LABS: Alanine Aminotransferase 12.0 U/L (7-52); Albumin Globulin Ratio 0.8 (0.9-2); Albumin Level 2.8 gm/dl (3.4-5.0); Alkaline Phosphatase 92.0 U/L (34-104); Anion Gap 7.0 (3-11); Bilirubin,Total 0.4 mg/dl (0.2-1.0); Blood Urea Nitrogen 18.0 mg/dl (6-23); Calcium 8.5 mg/dl (8.6-10.3); Carbon Dioxide 25.0 mmol/L (21-32); Chloride 103.0 mmol/L (98-107); Creatinine Clr Calc Pharmacy 187.8 ml/min; Globulin 3.6 gm/dl (2.5-4.0); Glucose 118.0 mg/dl (70-99(Fasting)); Potassium 4.2 mmol/L (3.5-5.1); Sodium 135.0 mmol/L (136-145); Total Protein 6.4 gm/dl (6.0-8.3)
[2025-05-04 10:20] LABS: Cdiff Toxin B Gene (2yr or >) Negative Cdiff Gene (Neg)
[2025-05-04 10:24] LABS: Magnesium 2.1 mg/dl (1.7-2.4)
--- NOTE | 2025-05-04 10:59 | Billing Data ---
Date of Service May 01, 2025 Coding Level of Care Code 69653 SUB INP/OBS CARE MIN
--- NOTE | 2025-05-04 11:07 | Billing Data ---
Date of Service May 02, 2025 Coding Level of Care Code 82471 SUB INP/OBS CARE MIN
--- NOTE | 2025-05-04 11:11 | Billing Data ---
Date of Service May 03, 2025 Coding Level of Care Code 65266 SUB INP/OBS CARE MIN
--- NOTE | 2025-05-04 16:13 | Communication Note ---
Date of Service: May 04, 2025 Being followed for ulcerative colitis flare. Patient is with his mom and aunt and is in good spirits. He had loading dose of humira yesterday, stools are still liquid and slowing down. Also tolerating diet well for completion will check CMV PCR
--- NOTE | 2025-05-04 20:43 | Hospitalist Progress Note ---
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 #uncontrolled/active ulcerative colitis -had modestly improved in the first 1-2 days of the hospital stay, but now symptoms and signs are back to where they were at time of admission -CRP has not improved with high-dose IV steroids since admission (was 11, now 12 today compared to 2.5 04/19) -severe disease on CT scan with miller-colitis -infectious work-up -- stool Biofire, stool C diff -- all negative -repeated a C diff today - again negative -GI consult appreciated -advised solumedrol 40mg IV BID - continue such, no change in dose today -hold budesonide PO -resume mesalamine 400mg BID -defer additional Rx to GI: Recommend restarting biologic therapy with Humira - insurance denied -Similar biologic medication sent for authorization, approval information by 9AM tomorrow; medication will be shipped to home and brought in with pharmacy approval prior to inpatient use -Flex sigmoid scope procedure completed and studies pending -GI recommends potential transfer to [place] due to UC refractory to steroids and potential need for salvage therapy -resumed IV fluids -downgraded diet to NPO for bowel rest, PPN can be considered if diet cannot be advanced post scope -Pain control: IV Tylenol 1g Q8H, IV Toradol 30mg Q6H, IV Pepcid. Consider opioid therapy if pain is refractory to management -[facility] pharmacy contacted as adalimumab medication was not authorized by insurance, prescription transferred to [facility] and medication will be filled and shipped to home, and brought inpatient prior to use - Humira started 05/03 with modest improvement in bloody BMs for past 72 hours, and without bloody BMs for 48 hours. - If condition continues to improve consider outpatient GI f/u with [place] [facility] s/p d/c #severe protein calorie malnutrition with weight loss -2nd to uncontrolled ulcerative colitis -Fe studies suggest Fe def; he reports having had IV Fe in the past; consider IV venofer while here -B12, folate wnl -added MVI -replace low vit D; ergocalciferol therapy -Boost protein shake supplementation started #cough -lung exam wnl -O2 sats wnl -2-view cxr wnl -likely upper respiratory in etiology -has not complained of this in several days -resolved #anemia -2nd to blood loss last 2-3 weeks from UC -Basline hgb: 15, current: 10.9 -consider IV iron #leukocytosis - -likely 2nd to UC flare itself and steroids -stool BioFire, stool C diff negative -trend CBC, improving #DVT Proph - -defer on chemical means while having active BRBPR #abnormal appendix on CT scan - -likely due to inflammation from his UC -doubt acute appendicitis de lelia -can follow #vitamin D deficiency - -undetectable level -2nd to poor dietary intake, malabsorption from UC, etc. -ergocalciferol 50,000 units qweekly x 8 weeks #fatigue/weakness - -2nd to UC flare, anemia, etc. -checked COVID/flu/RSV to ensure no other concomitant process -- these returned negative Admission and Anticipated Discharge Date Admission Date: April 25, 2025 Supervising Physician Co-Signing Physician Notes I personally examined the patient and verified all churchill points of history and exam, discussed case, and agree with decision making with Dr Elizabeth PGY 2 Patient with an ulcerative colitis flair. Patient was not responsive to steroids initially but has turned the corner Patient denies any bloody diarrhea since 05/03. First dose of humira will be given on 05/03 Given his clinical improvement, will hold off transfer to tertiary center. Patient's diet has slowly improved, and protein intake as well. HIs blood work is now showing improvement in his total protein and albumin. I anticipate patient to continue to improve over the next few days. Subjective Patient is seen resting comfortably this AM. Reports that he had 5 non-bloody BMs since 12AM. Patient reports that the consistency has changed from green with mucous to brown and remains non-bloody for the past 48 hours. Patient also notes relief of pain with BMs and feels ready to advance to a solid food diet. Patient has started Humira therapy, and therapy and potential outpatient follow-up with IBD clinic in [place] is discussed with patient and family. Patient remains afebrile and hemodynamically stable. Physical Exam Physical Exam: General: patient resting comfortably, NAD, non-toxic in appearance, answers questions appropriately. Skin: warm, dry, intact HEENT: NC/AT, anicteric sclera, conjunctiva without injection, moist mucus membranes. Heart: +S1/S2, regular, no m/r/g Lungs: equal air entry bilaterally, no rales/rhonchi/wheezes Abd: +BS, soft, ND, Tenderness present as band along lower abdomen with radiation to lower back. Resolution of upper abdominal tenderness on light and deep palpation. . Ext: warm, no clubbing/cyanosis or edema Neuro: nonfocal, speech intact, no facial droop, moving all extremities. Results & Data Results & Data Vital Signs (Past 12 Hours) Vital Signs Temp Pulse Resp BP Pulse Ox O2 Del Method 05/04/25 14:34 36.8 C 74 18 125/72 95 Room Air Resident Activity Tracking Resident Involvement: Resident Care Provided Care Provided: Adult Hospital Medicine
[2025-05-05 06:57] LABS: Hematocrit (blood only) 30.3 % (42.0-52.0); Hemoglobin 10.8 g/dl (14.0-18.0); Immature Granulocytes # (auto) 0.20 K/uL (0.01-0.20); Immature Granulocytes % (auto) 0.9 %; Mean Corpuscular Hemoglobin 30.0 pg (25.0-34.0); Mean Corpuscular Volume 84.2 fL (80.0-100.0); Platelet Count 469 K/uL (130-400); RDW Standard Deviation 36.2 fL (36.4-46.3); Red Blood Count 3.60 M/uL (4.70-6.10); White Blood Count 23.26 K/ul (4.8-10.8)
[2025-05-05 07:18] LABS: Anion Gap 5.0 (3-11); Blood Urea Nitrogen 17.0 mg/dl (6-23); Calcium 8.4 mg/dl (8.6-10.3); Carbon Dioxide 26.0 mmol/L (21-32); Chloride 104.0 mmol/L (98-107); Creatinine Clr Calc Pharmacy 183.6 ml/min; Glucose 114.0 mg/dl (70-99(Fasting)); Potassium 4.2 mmol/L (3.5-5.1); Sodium 135.0 mmol/L (136-145)
--- NOTE | 2025-05-05 10:22 | Billing Data ---
Date of Service May 04, 2025 Coding Level of Care Code 76818 SUB INP/OBS CARE 50MIN Comment updated family
--- NOTE | 2025-05-05 13:37 | Communication Note ---
Date of Service: May 05, 2025 Subjective: Feels better, tolerating low fiber diet Vital signs stable Physical examination unchanged Labs stable Assessment and plan: Severe ulcerative colitis status post induction dose of Humira on Tuesday, still remains on IV steroids, for completion I had ordered CMV PCR in the blood please follow-up on that. Overall plan would be to see if we can switch IV steroids to oral prednisone taper and continue to maintain solid food intake with decrease in bowel movements His bowel movements are slowing down now Once he achieves a reasonable clinical improvement then can be discharged with outpatient follow-up and continuing Humira Will continue VSL #3 probiotic as outpatient
--- NOTE | 2025-05-05 13:45 | Hospitalist Progress Note ---
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 #uncontrolled/active ulcerative colitis -had modestly improved in the first 1-2 days of the hospital stay, but now symptoms and signs are back to where they were at time of admission -CRP has not improved with high-dose IV steroids since admission (was 11, now 12 today compared to 2.5 04/19) -severe disease on CT scan with miller-colitis -infectious work-up -- stool Biofire, stool C diff -- all negative -repeated a C diff today - again negative -GI consult appreciated -advised solumedrol 40mg IV BID - continue such, no change in dose today -hold budesonide PO -resume mesalamine 400mg BID -defer additional Rx to GI: Recommend restarting biologic therapy with Humira - insurance denied -Similar biologic medication sent for authorization, approval information by 9AM tomorrow; medication will be shipped to home and brought in with pharmacy approval prior to inpatient use -Flex sigmoid scope procedure completed: Architecture significant for active UC w/o evidence of CMV colitis -GI recommends potential transfer to [place] due to UC refractory to steroids and potential need for salvage therapy -resumed IV fluids -downgraded diet to NPO for bowel rest, PPN can be considered if diet cannot be advanced post scope -Pain control: IV Tylenol 1g Q8H, IV Toradol 30mg Q6H, IV Pepcid. Consider opioid therapy if pain is refractory to management -[facility] as adalimumab medication was not authorized by insurance, prescription transferred to [facility] and medication will be filled and shipped to home, and brought inpatient prior to use - Humira started 05/03 with modest improvement in bloody BMs for past 72 hours, and without bloody BMs for 48 hours. - If condition continues to improve consider outpatient GI f/u with [place] [facility] s/p d/c - Discuss steroid recommendations with GI for d/c, patient and family would like to discuss documentation for medical leave of absence from school for the semester and insurance coverage with case management team. Anticipate d/c in the next 1-2 days. #severe protein calorie malnutrition with weight loss -2nd to uncontrolled ulcerative colitis -Fe studies suggest Fe def; he reports having had IV Fe in the past; consider IV venofer while here -B12, folate wnl -added MVI -replace low vit D; ergocalciferol therapy -Boost protein shake supplementation started #cough -lung exam wnl -O2 sats wnl -2-view cxr wnl -likely upper respiratory in etiology -has not complained of this in several days -resolved #anemia -2nd to blood loss last 2-3 weeks from UC -Basline hgb: 15, current: 10.9 -consider IV iron #leukocytosis - -likely 2nd to UC flare itself and steroids -stool BioFire, stool C diff negative -trend CBC, improving #DVT Proph - -defer on chemical means while having active BRBPR #abnormal appendix on CT scan - -likely due to inflammation from his UC -doubt acute appendicitis de lelia -can follow #vitamin D deficiency - -undetectable level -2nd to poor dietary intake, malabsorption from UC, etc. -ergocalciferol 50,000 units qweekly x 8 weeks #fatigue/weakness - -2nd to UC flare, anemia, etc. -checked COVID/flu/RSV to ensure no other concomitant process -- these returned negative Admission and Anticipated Discharge Date Admission Date: April 25, 2025 Subjective Patient is seen resting comfortably this AM. Patient notes that this is the best he has felt since admission. Patient reports 2 non-bloody greenish brown BMs since 12AM. Patient reports no pain or discomfort from BMs and notes that his lower abdominal pain and back pain has been improving. Patient remains afebrile and hemodynamically stable. Physical Exam Physical Exam: General: patient resting comfortably, NAD, non-toxic in appearance, answers questions appropriately. Skin: warm, dry, intact HEENT: NC/AT, anicteric sclera, conjunctiva without injection, moist mucus membranes. Heart: +S1/S2, regular, no m/r/g Lungs: equal air entry bilaterally, no rales/rhonchi/wheezes Abd: +BS, soft, ND, Tenderness present as band along lower abdomen with radiation to lower back present but improved. Ext: warm, no clubbing/cyanosis or edema Neuro: nonfocal, speech intact, no facial droop, moving all extremities. Results & Data Results & Data Vital Signs (Past 12 Hours) Vital Signs Temp Pulse Resp BP Pulse Ox O2 Del Method 05/05/25 07:15 36.5 C 61 17 106/69 96 Room Air Resident Activity Tracking Resident Involvement: Resident Care Provided Care Provided: Adult Hospital Medicine
[2025-05-06 07:19] LABS: Hematocrit (blood only) 30.0 % (42.0-52.0); Hemoglobin 10.8 g/dl (14.0-18.0); Immature Granulocytes # (auto) 0.18 K/uL (0.01-0.20); Immature Granulocytes % (auto) 0.9 %; Mean Corpuscular Hemoglobin 30.6 pg (25.0-34.0); Mean Corpuscular Volume 85.0 fL (80.0-100.0); Platelet Count 444 K/uL (130-400); RDW Standard Deviation 37.1 fL (36.4-46.3); Red Blood Count 3.53 M/uL (4.70-6.10); White Blood Count 20.45 K/ul (4.8-10.8)
[2025-05-06 07:45] LABS: Anion Gap 6.0 (3-11); Blood Urea Nitrogen 16.0 mg/dl (6-23); Calcium 8.6 mg/dl (8.6-10.3); Carbon Dioxide 27.0 mmol/L (21-32); Chloride 104.0 mmol/L (98-107); Creatinine Clr Calc Pharmacy 164.8 ml/min; Glucose 106.0 mg/dl (70-99(Fasting)); Potassium 4.3 mmol/L (3.5-5.1); Sodium 137.0 mmol/L (136-145)
--- NOTE | 2025-05-06 11:33 | Gastroenterology Progress Note ---
Date of Service May 06, 2025 Assessment & Plan (1) Ulcerative colitis: Plan 24yowm with h/o severe ulcerative colitis is seen today on daily rounds in hospital for UC flair. Hgb 10.8. Ferritin 64. (1) UC Flare - Initially was having 10-15 bloody BMs a day. Poor PO intake. - Admitted and underwent Sigmoidoscopy that was consistent with severe UC - He was started on IV steroids and began Humira Tuesday. - Today he reports that he's starting to feel better. He reports that he's had 1 bowel movement a day,. Bleeding has settled down. - He's able to eat and drink low fiber diet well. - CRP and other labs are improving/stable. PLAN - Continue with Humira as scheduled. - DC IV Steroids. Change to Prednisone 40mg/day tapered down by 5mg each week over 8 weeks. - Plan to follow up closely with GI as outpatient. - Please call with any acute changes, questions or concerns. Please see addendum below with additional recommendation from my supervising physician. Admission and Anticipated Discharge Date Admission Date: April 25, 2025 Supervising Physician Co-Signing Physician Notes I personally saw and examined the patient. I have reviewed the chart and agree with the documentation provided by the JUNIOR ADMINISTRATIVE ASSISTANT including discussion about the assessment, treatment and plan. Briefly, clinically improving down to 1 bowel movement bleeding has really stopped and his tenesmus and urgency has improved. Is up-to-date on his vaccinations so far. He will need follow-up with GI outpatient. Will continue his Humira and start him on an oral prednisone taper. He can get outpatient hyoscyamine for his abdominal cramping. From a GI standpoint he is stable for dicharge in next 24 hours, please call us back with any questions or concerns Subjective 24yowm with h/o severe ulcerative colitis is seen today on daily rounds in hospital for UC flair. (1) UC Flare - Initially was having 10-15 bloody BMs a day. Poor PO intake. - Admitted and underwent Sigmoidoscopy that was consistent with severe UC - He was started on IV steroids and began Humira Tuesday. - Today he reports that he's starting to feel better. He reports that he's had 1 bowel movement a day,. Bleeding has settled down. - He's able to eat and drink low fiber diet well. Pertinent Diagnostics. CRP 1.97 (down from 12 at admission). Hgb stable at 10.8 g/dl 30.0% WBC 20 k/ul.Plt 444 Na 137, K 4.3, Cl 104, CO 2 27, BUN 16, Cr 0.49, Glucose 106 Stool Calprotectin pending. Sigmoidoscopy Findings: - The digital rectal exam was normal. - Inflammation was found in a continuous and circumferential pattern from the rectum to the sigmoid colon. This was graded using the Ulcerative Colitis Endoscopic Index of Severity (UCEIS): complete obliteration of vascular pattern (2), mild luminal bleeding (2), deep ulcers (3). Impression: - Preparation of the colon was fair. - Pancolitis ulcerative colitis. - No specimens collected. - Severe UC. No endoscopic evidence for CMV or pseudomembranous colitis. Biopsies done for CMV and submitted. Start biological Humira soon as available Review of Systems Review of Systems: See HPI Physical Exam Physical Exam: Constitutional: NAD. Alert. Answering questions appropriately. Respiratory: Breathing is even, non-labored. Lungs terry are clear to auscultation anteriorly. Cardiovascular: Regular Rate and Rhythm, no murmurs, rubs or gallops appreciated. Gastrointestinal (Abdomen): Normoactive bowel sounds x4, soft, non-distended, non-tender. Musculoskeletal: Lying in bed comfortably. No peripheral edema. Results & Data Results & Data Vital Signs (Past 12 Hours) Vital Signs Temp Pulse Resp BP Pulse Ox O2 Del Method 05/06/25 08:07 97.9 F 58 L 16 111/71 99 Room Air PG Care Time/CCT Total # of Minutes Spent Total Time Spent with Patient: Total time spent is greater than 50% in coordination of care (as documented) at patient's floor/unit and/or counseling patient: Coding Level of Care Code 34468 SUB INP/OBS CARE 2/35MIN Diagnoses Ulcerative pancolitis without complication K51.00 Digestive disease complication type: without complication Ulcerative colitis location: ulcerative pancolitis (1) Ulcerative colitis Digestive disease complication type: without complication Ulcerative colitis location: ulcerative pancolitis Qualified Code(s): K51.00 - Ulcerative (chronic) pancolitis without complications
--- NOTE | 2025-05-06 17:01 | Hospitalist Progress Note ---
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 #uncontrolled/active ulcerative colitis -had modestly improved in the first 1-2 days of the hospital stay, but now symptoms and signs are back to where they were at time of admission -CRP has not improved with high-dose IV steroids since admission (was 11, now 12 today compared to 2.5 04/19) -severe disease on CT scan with miller-colitis -infectious work-up -- stool Biofire, stool C diff -- all negative -repeated a C diff today - again negative -GI consult appreciated -advised solumedrol 40mg IV BID - continue such, no change in dose today -hold budesonide PO -resume mesalamine 400mg BID -defer additional Rx to GI: Recommend restarting biologic therapy with Humira - insurance denied -Similar biologic medication sent for authorization, approval information by 9AM tomorrow; medication will be shipped to home and brought in with pharmacy approval prior to inpatient use -Flex sigmoid scope procedure completed: Architecture significant for active UC w/o evidence of CMV colitis -GI recommends potential transfer to [place] due to UC refractory to steroids and potential need for salvage therapy -resumed IV fluids -downgraded diet to NPO for bowel rest, PPN can be considered if diet cannot be advanced post scope -Pain control: IV Tylenol 1g Q8H, IV Toradol 30mg Q6H, IV Pepcid. Consider opioid therapy if pain is refractory to management -[facility] as adalimumab medication was not authorized by insurance, prescription transferred to [facility] and medication will be filled and shipped to home, and brought inpatient prior to use - Humira started 05/03 with modest improvement in bloody BMs for past 72 hours, and without bloody BMs for 48 hours. - If condition continues to improve consider outpatient GI f/u with [place] [facility] center s/p d/c - Discuss steroid recommendations with GI for d/c likely will be long prednisone taper, patient and family would like to discuss documentation for medical leave of absence from school for the semester and insurance coverage with case management team. Anticipate d/c in the next 1-2 days. #severe protein calorie malnutrition with weight loss -2nd to uncontrolled ulcerative colitis -Fe studies suggest Fe def; he reports having had IV Fe in the past; consider IV venofer while here -B12, folate wnl -added MVI -replace low vit D; ergocalciferol therapy -Boost protein shake supplementation started #cough -lung exam wnl -O2 sats wnl -2-view cxr wnl -likely upper respiratory in etiology -has not complained of this in several days -resolved #anemia -2nd to blood loss last 2-3 weeks from UC -Basline hgb: 15, current: 10.9 -consider IV iron #leukocytosis - -likely 2nd to UC flare itself and steroids -stool BioFire, stool C diff negative -trend CBC, improving #DVT Proph - -defer on chemical means while having active BRBPR #abnormal appendix on CT scan - -likely due to inflammation from his UC -doubt acute appendicitis de lelia -can follow #vitamin D deficiency - -undetectable level -2nd to poor dietary intake, malabsorption from UC, etc. -ergocalciferol 50,000 units qweekly x 8 weeks #fatigue/weakness - -2nd to UC flare, anemia, etc. -checked COVID/flu/RSV to ensure no other concomitant process -- these returned negative Admission and Anticipated Discharge Date Admission Date: April 25, 2025 Supervising Physician Co-Signing Physician Notes I personally examined the patient and verified all churchill points of history and exam, discussed case, and agree with decision making with Dr Elizabeth Feeling much better. Down to minimal bowel movementsabout 1 a day no blood. Pleased with his progress. Vitals noted, in general he is awake and alert pleasant no acute distress. HEENT normocephalic atraumatic mucous membranes moist. Breathing unlabored no accessory muscle use good effort. Skin without rashes pallor or icterus. Neuro without focal deficits. Uncontrolled ulcerative colitis present on admissiondue to not having insurance coverage for his biologic. Has finally improved after quite a long time of supraphysiologic steroids and a dose of Humira. Transition to p.o. prednisone. Hopefully home tomorrow. Long slow steroid taper and close/ongoing outpatient follow-up with PCP and GI. Subjective Patient is doing well this AM. Reports 1 non-bloody brown stool. Patient feels better than previous days, and continues to eat a low-fiber diet well without any abdominal pain, nausea, and vomiting. Patient remains afebrile and hemodynamically stable. Physical Exam Physical Exam: General: patient resting comfortably, NAD, non-toxic in appearance, answers questions appropriately. Skin: warm, dry, intact HEENT: NC/AT, anicteric sclera, conjunctiva without injection, moist mucus membranes. Heart: +S1/S2, regular, no m/r/g Lungs: equal air entry bilaterally, no rales/rhonchi/wheezes Abd: +BS, soft, ND, Tenderness present as band along lower abdomen with radiation to lower back present but improved. Ext: warm, no clubbing/cyanosis or edema Neuro: nonfocal, speech intact, no facial droop, moving all extremities. Results & Data Results & Data Vital Signs (Past 12 Hours) Vital Signs Temp Pulse Resp BP Pulse Ox O2 Del Method 05/06/25 15:53 36.4 C L 72 17 123/72 96 Room Air 05/06/25 08:07 36.6 C 58 L 16 111/71 99 Room Air Resident Activity Tracking Resident Involvement: Resident Care Provided Care Provided: Adult Hospital Medicine
--- NOTE | 2025-05-06 19:10 | Billing Data ---
Date of Service May 06, 2025 Coding Level of Care Code 91011 SUB INP/OBS CARE MIN
[2025-05-06] MEDS: FAMOTIDINE 20 MG TAB PO SCH (20:26)
[2025-05-07 07:17] LABS: Hematocrit (blood only) 31.0 % (42.0-52.0); Hemoglobin 10.9 g/dl (14.0-18.0); Mean Corpuscular Hemoglobin 29.9 pg (25.0-34.0); Mean Corpuscular Volume 85.2 fL (80.0-100.0); Platelet Count 448 K/uL (130-400); RDW Standard Deviation 37.3 fL (36.4-46.3); Red Blood Count 3.64 M/uL (4.70-6.10); White Blood Count 23.54 K/ul (4.8-10.8)
[2025-05-07 07:37] LABS: Anion Gap 5.0 (3-11); Blood Urea Nitrogen 17.0 mg/dl (6-23); Calcium 8.3 mg/dl (8.6-10.3); Carbon Dioxide 27.0 mmol/L (21-32); Chloride 105.0 mmol/L (98-107); Creatinine Clr Calc Pharmacy 149.6 ml/min; Glucose 86.0 mg/dl (70-99(Fasting)); Potassium 4.0 mmol/L (3.5-5.1); Sodium 137.0 mmol/L (136-145)
[2025-05-07 07:49] LABS: Immature Granulocytes # (auto) 0.24 K/uL (0.01-0.20); Immature Granulocytes % (auto) 1.0 %; Polychromasia 1+
[2025-05-07] MEDS: predniSONE 20 MG TAB PO SCH (09:43)
--- NOTE | 2025-05-07 11:47 | Discharge Summary ---
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 His ulcerative colitis was diagnosed in 2023 after a 6 week hospitalization in [place]. Initially he was diagnosed with a parasitic infection, then ultimately had a colonoscopy which confirmed the presence of UC. He was on Remicade until September 2024 at which time it was discontinued. Starting about 3 weeks ago he developed mild bloody stools. These then progressed over the last 2 weeks. He is now having about 15 bloody stools each day including nocturnal symptoms. He has lost about 15 pounds of weight during this time period. He has lower abdominal pain that radiates to the low back. Denies vomiting but has had nausea. He is trying to eat/drink but "can't keep up" with the amount of stool losses. He has felt weak and dizzy/lightheaded. On 04/19 he came to the [facility] ER due to his GI symptoms. CT abd/pelvis showed severe colitis c/w his UC. GI was consulted and they advised budesonide 9mg PO daily along with mesalamine suppositories nightly with close follow-up shortly thereafter. He did indeed f/u with [facility] today who advised hospitalization since he was not responding to the above medicines. Admission Exam Per Admitting Provider gen - thin, NAD, pleasant eyes - PERRL HENT - mouth without ulcers; MM slightly dry neck - no lymph nodes, no goiter heart - RRR, s1 s2, no murmur lungs - CTA b/l abd - mild tenderness lower quadrants, BS+, no HSM, ND, no peritoneal signs ext - no edema, pulses 2+ b/l feet skin - no rash psych - a/o x 3 neuro - strength 5/5 x 4 exts Principal Diagnosis Ulcerative colitis flare Discharge Exam General: patient resting comfortably, NAD, non-toxic in appearance, answers questions appropriately. Skin: warm, dry, intact HEENT: NC/AT, anicteric sclera, conjunctiva without injection, moist mucus membranes. Heart: +S1/S2, regular, no m/r/g Lungs: equal air entry bilaterally, no rales/rhonchi/wheezes Abd: +BS, soft, ND, Tenderness present as band along lower abdomen with radiation to lower back present but improved. Ext: warm, no clubbing/cyanosis or edema Neuro: nonfocal, speech intact, no facial droop, moving all extremities. Discharge Data Allergies Allergy/AdvReac Type Severity Reaction Status Date / Time No Known Allergies Allergy Verified 04/25/25 09:59 Consultations 04/25/25 13:34 ED Decision to Admit Stat 04/25/25 16:27 Consult Gastroenterology Routine 04/30/25 10:02 Consult General Surgery Routine Procedures Performed Operation Date: 04/30/25 16:30 Actual Procedures p Colonoscopy Biopsy Cytology - Pavan Deleon MD Ordered Studies 04/25/25 12:31 CT abd pelvis IV con only Stat Hospital Course (1) Severe protein-calorie malnutrition: (2) Weight loss: (3) Cough: (4) Anemia: (5) Iron deficiency: (6) Vitamin D deficiency: (7) Fatigue: Plan 24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 #uncontrolled/active ulcerative colitis -had modestly improved in the first 1-2 days of the hospital stay, but now symptoms and signs are back to where they were at time of admission -CRP has not improved with high-dose IV steroids since admission (was 11, now 12 today compared to 2.5 04/19) -severe disease on CT scan with miller-colitis -infectious work-up -- stool Biofire, stool C diff -- all negative -repeated a C diff today - again negative -GI consult appreciated -advised solumedrol 40mg IV BID - continue such, no change in dose today -hold budesonide PO -resume mesalamine 400mg BID -defer additional Rx to GI: Recommend restarting biologic therapy with Humira - insurance denied -Similar biologic medication sent for authorization, approval information by 9AM tomorrow; medication will be shipped to home and brought in with pharmacy approval prior to inpatient use -Flex sigmoid scope procedure completed: Architecture significant for active UC w/o evidence of CMV colitis -GI recommends potential transfer to [place] due to UC refractory to steroids and potential need for salvage therapy -resumed IV fluids -downgraded diet to NPO for bowel rest, PPN can be considered if diet cannot be advanced post scope -Pain control: IV Tylenol 1g Q8H, IV Toradol 30mg Q6H, IV Pepcid. Consider opioid therapy if pain is refractory to management -[facility] pharmacy contacted as adalimumab medication was not authorized by insurance, prescription transferred to [facility] and medication will be filled and shipped to home, and brought inpatient prior to use - Humira started 05/03 with modest improvement in bloody BMs for past 72 hours, and without bloody BMs for 48 hours. - If condition continues to improve consider outpatient GI f/u with [place] [facility] s/p d/c - Discuss steroid recommendations with GI for d/c likely will be long prednisone taper, patient and family would like to discuss documentation for medical leave of absence from school for the semester and insurance coverage with case management team. Anticipate d/c in the next 1-2 days. #severe protein calorie malnutrition with weight loss -2nd to uncontrolled ulcerative colitis -Fe studies suggest Fe def; he reports having had IV Fe in the past; consider IV venofer while here -B12, folate wnl -added MVI -replace low vit D; ergocalciferol therapy -Boost protein shake supplementation started #cough -lung exam wnl -O2 sats wnl -2-view cxr wnl -likely upper respiratory in etiology -has not complained of this in several days -resolved #anemia -2nd to blood loss last 2-3 weeks from UC -Basline hgb: 15, current: 10.9 -consider IV iron #leukocytosis - -likely 2nd to UC flare itself and steroids -stool BioFire, stool C diff negative -trend CBC, improving #DVT Proph - -defer on chemical means while having active BRBPR #abnormal appendix on CT scan - -likely due to inflammation from his UC -doubt acute appendicitis de lelia -can follow #vitamin D deficiency - -undetectable level -2nd to poor dietary intake, malabsorption from UC, etc. -ergocalciferol 50,000 units qweekly x 8 weeks #fatigue/weakness - -2nd to UC flare, anemia, etc. -checked COVID/flu/RSV to ensure no other concomitant process -- these returned negative Total Time Total Time Spent Total Time Spent (In Minutes): See attending attestation Discharge Plan Discharge Items Patient Disposition: Home - Self-Care Reason For Visit: ULCERATIVE COLITIS EXARCERBATION Discharge Diagnosis: Ulcerative colitis flare Condition on Discharge: Good Activity: Per Instructions section Non-emergency contact: Primary Care Provider and Automotive Specialty Technician Call non-emergency contact if: your symptoms worsen and your pain is not controlled Follow-up/Referrals: [facility] [Primary Care Provider] - Racquel Rodriguez MD [Surgeon] - Diet: Regular and Low Fiber Addtl Attending Provider Instructions: You were admitted to [facility] due to a severe ulcerative colitis flare. Initially we believed that steroid therapy was not working for this flare due to constant 10-12 bloody bowel movements daily with significant lower abdominal pain radiating to the lower back. While admitted the GI, hospitalist, and colorectal surgery teams were seeing you daily. Due to the concerns with steroids not working to control this flare, there was discussion about inpatient transfer to [facility]'s IBD center for more expert care and for additional therapies such as salvage therapy that is available at [facility]. However, your condition quickly began to improve approximately 5 days ago with a reduction in bloody bowel movements, and for the past 72-96 hours you have had 1-2 bowel movements per day that have been of a more liquid consistency but brown in color and without any blood. You were started on Humira while here and now that you are back on biologic therapy, I believe that your condition will continue to be stabilize similar to how you felt amazing while you were on Remicade therapy several months ago. At this time, you are medically stable with great impro vements in all of your symptoms and you are tolerating a diet of solid foods very well. Steps to consider moving forward: Regular PCP follow up with me, Dr. Albert Elizabeth. I have set up an appointment for you on May 16 at 10AM at the [facility] clinic across the street from the hospital. Please plan to arrive at 9:45 AM to check in. A steroid taper to prevent re-occurrence of symptoms. I will prescribe the first two weeks of this medication, and I can prescribe more at our follow-up visit. You will be taking Prednisone for 8 weeks starting at 40mg, and reducing the dose by 5mg each week. Thus you will be on prednisone 40mg from this Tuesday to next Tuesday, and every Tuesday expect to reduce your dosage by 5mg. I will set you up for two weeks and then when we meet in clinic I can prescribe more prednisone to continue your taper. The first two weeks will be 40mg prednisone daily and then 35mg prednisone daily. I will prescribe 10mg pills, thus your first week will be 4 pills daily starting tomorrow for the remaining 6 days of this week, and then 3.5 pills daily for the next 7 days. This comes out to 49, 10mg prednisone pills. Please pick these up at [facility] pharmacy. When you come see me in clinic and you are able to normalize your diet and vitamin intake, we will check levels of several nutrients/vitamins and set you up with supplemental vitamins. Your vitamin D supplements should be continued. We will place a follow-up outpatient referral for the [place] [facility] clinic, and I can also place a referral when we meet in clinic next week. For your medical leave of absence from school for the remainder of the semester, I will write you a hospital note with respect to your medical privacy describing the reasoning for the leave of absence. Additional documentation can be obtained later after you turn this initial document in, and based on additional things [employer] needs. Once again it was a pleasure taking care of you during this stay and I will see you soon! Pending Studies at Discharge: No Stand-Alone Forms: My [facility], Work/School Release, Smoking Cessation Medications and DC Order Prescriptions: New cholecalciferol (vitamin D3) [Vitamin D3] 125 mcg (5,000 unit) tablet 5,000 unit PO DAILY Qty: 30 3RF prednisone 10 mg tablet 10 mg PO DAILY Qty: 49 0RF Rx Instructions: 40mg of Prednisone daily for 6 days. Then 35mg of prednisone daily for the next 7 days. The rest of the taper will be prescribed at follow-up Continued adalimumab-aacf [adalimumab-aacf(CF) pen Crohns] 40 mg/0.8 mL pen injector kit See Rx Instructions subcut .COMPLEX Qty: 6 1RF Rx Instructions: inject four - 40 mg/0.8 mL pens on Day 1; inject two - 40 mg/0.8 mL pens on Day 15 of therapy subcut adalimumab-aacf 40 mg/0.8 mL pen injector kit 40 mg subcut Q14D Qty: 2 11RF Rx Instructions: Start on day 29. Continue for ongoing maintenance. mesalamine 1,000 mg suppository 1 g AR HS 30 Days Qty: 30 0RF budesonide 3 mg capsule,delayed,extend.release 9 mg PO DAILY 30 Days Qty: 90 0RF Discharge Orders: Discharge Order (Routine); Ordered 05/07/25 Ordered By: Albert Elizabeth Admission Data Admit Date/Time: 04/25/25 14:40 Attending Provider: Eze Fulton Admit Provider: Christopher Dennis Primary Care Provider: [facility] Other Providers: Christopher Dennis; John Charles I; Racquel Rodriguez Supervising Physician Co-Signing Physician Notes I personally examined the patient and verified all churchill points of history and exam, discussed case, and agree with decision making with Dr Elizabeth Feeling much better. Feels up to going home. No new problems.. Vitals noted, in general he is awake and alert pleasant no acute distress. HEENT normocephalic atraumatic mucous membranes moist. Breathing unlabored no accessory muscle use good effort. Skin without rashes pallor or icterus. Neuro without focal deficits. Uncontrolled ulcerative colitis present on admissiondue to not having insurance coverage for his biologic. Has finally improved after quite a long time of supraphysiologic steroids and a dose of Humira. Doing well. Safe/stable for home. Long, slow steroid taper. Close and ongoing outpatient follow-up. Continue Humira. otherwise as above. Resident Activity Tracking Resident Involvement: Resident Care Provided Care Provided: Adult Hospital Medicine
--- NOTE | 2025-05-07 13:01 | Billing Data ---
Date of Service May 07, 2025 Coding Level of Care Code 72500 IN/OBS DISCH 30 MIN/LESS
[2025-05-08 09:02] LABS: Source Whole Blood
--- NOTE | 2025-05-09 08:11 | Anesthesiology Progress Note ---
Date of Service May 09, 2025 Anesthesia Post Procedure Pain Intensity Abdomen: Pain Intensity: 5 Transfer of Care Handoff Completed per policy Notes Mental Status: alert / awake / arousable and participated in evaluation Patient Amnestic to Procedure: Yes Nausea / Vomiting: adequately controlled Pain: adequately controlled Airway Patency, RR, SpO2: stable & adequate BP & HR: stable & adequate Hydration State: stable & adequate Anesthetic Complications: no major complications apparent and Pt Satisfied with anesthetic care Notes: late entry. pt seen before dc
[2025-05-17] MEDS ORDERED: ADALIMUMAB 40 MG/0.8 ML SYR SQ SCH ×2 (16:00)
== END 2025-05-07 13:30 | disposition home or self-care (01) | DRG 385 ==
LOC: ED 12:00 → EDINP 14:40 → SUATTDRO 14:40 → 3N 16:19 → 3W 04-27 13:32